=== PATIENT | male | born 1950 | race Caucasian/White ===

== ENCOUNTER 2016-04-26 09:55 | Inpatient (IN) | payer MEDICARE, OTHER ==
[~2016-04-26] VITALS: Ht 172.7 cm; Wt 87.7 kg
[2016-04-26] VITALS (7 sets, daily range): BP systolic 107–143; BP diastolic 50–77; PULSE 52–130; RESP 16–26; O2SAT 93–96
[~2016-04-26 09:55] MED LIST: ASPI-628 PO; ATOR80TA77 PO; CHLORTHALIDONE; GABA600T2 PO; HYDR-4003 PO; LISI-567 PO; OMEP-113 PO; PREG150C PO; SILD100T PO; ZLP10T PO
[2016-04-26] MEDS ORDERED: 0.9% Sodium Chloride 1,000 ML IV ONE ×2 (10:08→11:25)
--- NOTE | 2016-04-26 10:08 | ED.REPORT ---
HPI-General Illness Date of Service Apr 26, 2016 ED Provider: Jose Guadalupe Crandall MD Pt is a 66 y/o male w/ a hx of CAD s/p stenting, HTN, presenting to the ED via EMS from Urgent Care due to generalized weakness onset 3 days ago. Pt c/o myalgias, shaking chills, fever (103 F at UC), mild dry cough, nasal congestion. Pt denies nausea, vomiting, diarrhea, dysuria, CP, SOB, abdominal pain. Rapid influenza screen was negative. Code status: FULL CODE - discussed with patient and Nursing Notes Stated Complaint: ALT LOC Chief Complaint: General Complaint Nursing Notes Reviewed: Yes Allergies: Coded Allergies: No Known Allergies (Verified , 09/19/15) Scheduled Alfuzosin ER (Alfuzosin ER) 10 Mg Tab.er.24h 10 MG PO DAILY Aspirin (Aspirin) 81 Mg Tablet 81 MG PO DAILY Atorvastatin Calcium (Atorvastatin Calcium) 80 Mg Tablet 80 MG PO DAILY Chlorthalidone (Chlorthalidone) 25 Mg Tablet 1.5 MG PO DAILY Cholecalciferol (Vitamin D3) (Vitamin D3) 2,000 Unit Capsule 2,000 UNIT PO DAILY Finasteride (Finasteride) 5 Mg Tablet 5 MG PO DAILY Lisinopril (Lisinopril) 20 Mg Tablet 20 MG PO BID Multivitamin (Once Daily) 1 Each Tablet 1 EACH PO DAILY [place]-3/Dha/Epa/Fish Oil (Fish Oil 1,000 mg Softgel) 1 Each Capsule 1 EACH PO DAILY Pregabalin (Lyrica) 150 Mg Capsule 150 MG PO BID Ranitidine (Ranitidine) 150 Mg Capsule 150 MG PO BID Vitamin B Complex & Vit C No.4 (Super B Complex) 150 Mg Tablet 150 MG PO DAILY Scheduled PRN Hydrocodone-Acetaminophen 5-325 mg (Hydrocodone-Acetaminophen 5-325 mg) 1 Each Tablet 1 EACH PO Q4 PRN PRN For Pain Sildenafil Citrate (Viagra) 100 Mg Tablet 100 MG PO UD PRN PRN sex Zolpidem (Ambien) 10 Mg Tab 5 MG PO HS PRN PRN For Insomnia General Time Seen by MD: 10:06 Chief Complaint Not feeling well Hx Obtained From: Patient, EMS Arrived By: Ambulance Sudden in Onset?: No Onset Occurred: 3 days ago Symptom Duration: Since onset Severity: Current: No pain currently Severity: Maximum: No pain Similar Sx Previous: No Past Medical History Past Medical History Hypertension Arthritis CAD s/p stenting Enlarged prostate Diverticulosis Denies MS Past Surgical History Cardiac stents Bilat trigger finger repair Left TKA Family History Colon cancer - negative colonoscopy Smoking History Never Smoker Ambulatory Status Independent Review of Systems Full Review of Systems Constitutional: Reports: Chills, Fever, Weakness - generalized Ears / Nose / Throat: Reports: Nasal congestion Respiratory: Reports: Non-productive cough, Denies: Shortness of breath Cardiovascular: Denies: Chest pain GI: Denies: Abdominal pain, Diarrhea, Nausea, Vomiting Male: Denies Dysuria Musculoskeletal: Reports: Myalgia Complete sys rev & neg: except as marked. Physical Exam Vital Signs Vital Signs Date Time Temp Pulse Resp B/P Pulse Ox O2 Delivery O2 Flow Rate FiO2 04/26/16 11:57 62 20 107/50 93 Nasal Cannula 3 04/26/16 10:01 39.5 100 16 123/56 94 Room Air Initial VS: Reviewed, Vital signs abnormal Head / Eyes: Atraumatic, Normocephalic, PERRL ENT: Mucous membranes moist, Conjunctiva normal, No scleral icterus Neck: Supple, Full range of motion Respiratory: Breath sounds normal, Clear to auscultation, No respiratory distress Cardiovascular: Regular rate & rhythm, Heart sounds normal, Intact distal pulses Extremities: Vascular intact, Neuro intact, No swelling, No tenderness Skin: Warm, Dry, No cyanosis Neurologic: Alert, Oriented, Nonfocal Psychiatric: Mood/affect normal, Behavior normal, Normal thought content General/Constitutional: Awake, Alert, No acute distress, Cooperative, Not toxic appearing Abdomen: Atraumatic, Soft, No guarding, No rebound, No distention, No palpable mass Tenderness/Guarding/Rebound: Positive: Tender RUQ... (Mild) Interpretation & Diagnostics Lab Results Interpretation Result Diagram: 04/26/16 1008 04/26/16 1008 Test 04/26/16 10:08 White Blood Count 5.6th/mm3 (3.8-10.1) Red Blood Count 4.60mil/mm3 (4.40-5.80) Hemoglobin 13.4g/dL (13.8-17.2) Hematocrit 39.6% (41.0-50.0) Mean Corpuscular Volume 86.1fL (81-100) Mean Corpuscular Hemoglobin 29.1pg (27.0-35.0) Mean Corpuscular Hemoglobin Concent 33.8% (32.0-37.0) Red Cell Distribution Width 14.4% (12.3-15.4) Platelet Count 62bil/L (150-400) Neutrophils (%) (Auto) 81.3% (40-74) Lymphocytes (%) (Auto) 4.3% (14-46) Monocytes (%) (Auto) 13.6% (4-12) Eosinophils (%) (Auto) 0% (0-5) Basophils (%) (Auto) 0.4% (0-3) Urine Color Straw (YELLOW) Urine Appearance Hazy (CLEAR,HAZY) Urine pH 5.5 (5.0-8.0) Urine Specific [place] 1.025 (1.003-1.035) Urine Protein 30mg/dL (NEG,TRACE) Urine Glucose (UA) Negativemg/dL (NEGATIVE) Urine Ketones Negativemg/dL (NEGATIVE) Urine Occult Blood Moderate (NEGATIVE) Urine Nitrite Negative (NEGATIVE) Urine Bilirubin Negative (NEGATIVE) Urine Urobilinogen Normalmg/dL (NORMAL) Urine Leukocyte Esterase Negative (NEGATIVE) Urine RBC 0-2/hpf (0-2) Urine WBC 0-5/hpf (0-5) Urine Epithelial Cells Occasional/hpf (NONE-MOD) Urine Crystals None seen (NONE SEEN) Urine Bacteria Moderate/hpf (NONE-FEW) Urine Hyaline Casts None/lpf (NONE) Urine Granular Casts Occasional (NONE SEEN) Urine Waxy Casts None seen (NONE SEEN) Urine Red Blood Cell Casts None seen (NONE SEEN) Urine White Blood Cell Casts None seen (NONE SEEN) Urine Mucus Present (None Seen) Urine Trichomonas None seen (NONE SEEN) Urine Yeast None (NONE SEEN) Urinalysis Comment None Urine Culture Reflexed Indicated Hold Urine Received (Received) Sodium Level 135mEq/L (134-144) Potassium Level 3.1mEq/L (3.5-5.2) Chloride Level 94mEq/L (97-108) Carbon Dioxide Level 27mmol/L (18-29) Blood Urea Nitrogen 19mg/dL (8-27) Creatinine 1.01mg/dL (0.76-1.27) Estimat Glomerular Filtration Rate 79mL/min (>59) Glucose Level 217mg/dL (60-99) Lactic Acid Level 3.2mmol/L (0.4-2.0) Calcium Level 8.7mg/dL (8.5-10.1) Magnesium Level 1.8mg/dL (1.6-2.6) Total Bilirubin 1.5mg/dL (0.0-1.2) Aspartate Amino Transf (AST/SGOT) 32U/L (0-50) Alanine Aminotransferase (ALT/SGPT) 26U/L (0-44) Alkaline Phosphatase 56U/L (25-160) Total Protein 7.1g/dL (6.4-8.4) Albumin 4.0g/dL (3.4-5.0) Lipase 22U/L (13-60) ECG Interpretation ECG Interpretation: Sinus rhythm rate 82 PVC LAD Prolonged QT interval, QTc 593 Time: 10:28 Interpreted by: ED physician Normal ECG Interpretation: No acute ischemic changes X-Ray Chest Interpretation Chest Xray Interpretation: IMPRESSION: Patchy bibasilar opacities as above suggestive of infection or inflammation such as developing pneumonia. Dictated by: Crista He M.D. on 04/26/2016 at 10:53 Approved by: Crista He M.D. on 04/26/2016 at 10:53 View: Portable, 1 view Interpretation / Wet Read by: Interpret - Radiologist Re-Eval/Medical Decision Med Decision/Clinical Course 66-year-old male history of CAD status post stent, hypertension presenting with cough and fevers times several days. Temperature 103. Vital signs otherwise stable. Lactate is three. Chest x-ray concerning for pneumonia. Patient requiring 3 L normal saline. Patient will be admitted for pneumonia. Given Rocephin and doxycycline. Avoided azithromycin due to prolonged QTC. Given potassium. Sent viral PCR. Source of Hx: Old records Time of Eval: 11:25 Re-Evaluation/Progress Note: Pt rechecked. Informed pt of need for admission due to bilateral pneumonia with hypoxia. Pt understands and agrees with plan for admission. All questions addressed. Consultation : Referral / Consult Name: Americo Jimenes MD Consulted With: Hospitalist Call Returned at: 12:48 Damascener: Will see patient, Agrees with eval, Agrees with plan, Accepts admit Counseled Regarding: Diagnosis, Lab results, Need for admission Discharge & Departure Primary Impression: Sepsis Sepsis type: sepsis due to unspecified organism Qualified Code: A41.9 - Sepsis, unspecified organism Additional Impression: Bilateral pneumonia Pneumonia type: due to unspecified organism Lung location: lower lobe of lung Qualified Code: J18.9 - Pneumonia, unspecified organism Disposition: ADMITTED TO HOSPITAL Discharge Condition All VS Reviewed: Yes Condition: Stable Referrals: Phillip Marquis MD (PCP) Andreas Attestation Portions of this note were transcribed by Carlos Ascencio. I, Dr. Crandall personally performed the history, physical exam and medical decision-making; I reviewed and confirmed the accuracy of the information in the transcribed note. Signed by Andreas Garzon, 04/26/16 - [id number] copies to: Phillip Marquis MD, Ben M MD Apr 26, 2016 10:08 CARLOS ASCENCIO Apr 26, 2016 10:17
[2016-04-26] MEDS ORDERED: Ondansetron 2 mg/mL 2 mL Inj IVPUSH PRN ×2 (10:10→12:50)
[2016-04-26 10:23] LABS: EOSINOPHILS % (AUTO) 0 % (0-5)
[2016-04-26 10:31] LABS: Magnesium 1.8 mg/dL (1.6-2.6)
[2016-04-26 10:46] LABS: BASOPHILS % (AUTO) 0.4 % (0-3); MONOCYTES % (AUTO) 13.6 % (4-12); Mean Corpuscular Hemoglobin 29.1 pg (27.0-35.0); Mean Corpuscular Volume 86.1 fL (81-100); NEUTROPHILS % (AUTO) 81.3 % (40-74); Platelet Count 62 bil/L (150-400)
--- NOTE | 2016-04-26 10:55 | DRSVH ---
PROCEDURE: X-RAY CHEST ONE VIEW, PORTABLE ([id number]) INDICATIONS: fever TECHNIQUE: One view of the chest was acquired. COMPARISON: [facility], CR, XR CHEST 2VW, 02/08/2015, 12:56. FINDINGS: Surgical changes and devices: None. Lungs and pleura: Patchy bibasilar opacities, left greater than right are present. Mediastinum: Mediastinal contours appear normal. Heart size is normal. Bones and chest wall: No suspicious bony lesions. Overlying soft tissues appear unremarkable. IMPRESSION: Patchy bibasilar opacities as above suggestive of infection or inflammation such as devel oping pneumonia. Dictated by: Crista He M.D. on 04/26/2016 at 10:53 Approved by: Crista He M.D. on 04/26/2016 at 10:53
[2016-04-26 10:59] LABS: APPEARANCE,URINE HAZY (CLEAR,HAZY); COLOR,URINE STRAW (YELLOW); PH,URINE 5.5 (5.0-8.0)
[2016-04-26 11:00] LABS: OCCULT BLOOD,URINE MODERATE (NEGATIVE)
[2016-04-26 11:01] LABS: UROBILINOGEN,URINE NORMAL (NORMAL)
[2016-04-26] MEDS ORDERED: cefTRIAXone Inj 2,000 MG in Dextrose 5% Minibag Plus 50 ML IV ONE (11:10)
[2016-04-26] MEDS ORDERED: KCl 40 mEq/D5W 500 mL 40 MEQ in IV Premix 1 EACH IV ONE (12:50)
[2016-04-26] MEDS ORDERED: Doxycycline Inj 100 MG in Dextrose 5% Minibag Plus 100 ML IV SCH (12:50)
[2016-04-26] MEDS ORDERED: Polyethylene Glycol (PEG) 17 Gm Powder PO PRN (12:50)
[2016-04-26] MEDS ORDERED: Alum-Mag Hydrox-Simeth 30 mL Suspension PO PRN ×2 (12:50)
[2016-04-26] MEDS ORDERED: ALFU10TA11 PO (13:23)
[2016-04-26] MEDS ORDERED: FINA5TAB9 PO (13:23)
[2016-04-26] MEDS ORDERED: HYG25 PO (13:23)
[2016-04-26] MEDS ORDERED: MULT-666 PO (13:26)
[2016-04-26] MEDS ORDERED: OMEG-38 PO (13:26)
[2016-04-26] MEDS ORDERED: VITA150T PO (13:26)
[2016-04-26] MEDS ORDERED: CHOL200047 PO (13:26)
[2016-04-26] MEDS ORDERED: RANI150C4 PO (13:26)
[2016-04-26] MEDS ORDERED: ASPI-973 PO (13:27)
--- NOTE | 2016-04-26 13:28 | NUR ---
POTASSIUM RATE CHANGE POTASSIUM INFUSION CAUSES ARM DISCOMFORT SO RATE IS CHANGED TO 100 CC/HR THEN 80CC/HR.
[2016-04-26] MEDS ORDERED: ACET-171 PO (13:31)
--- NOTE | 2016-04-26 13:48 | NUR ---
Admit nurse note Partial admission assessment completed in the ER with 's assistance. Pt. denies complaints at present except R arm pain associated with potassium infusion. After potassium rate change did not improved pt. pain, NS was started concurrently infusing with potassium. PT. reports improvement of pain. Pt. and report several day hx shakiness and weakness to the point that had to dress him this am. Pt. is normally independent and steady on his feet. Pt. verified NKA. Med rec completed per med bottles and pt./ recall. Med bottles to be sent home with daughter. Pt. declines advance directives information. Report called to Bryan Franks.
--- NOTE | 2016-04-26 13:54 | DRSVH ---
PROCEDURE: US ABDOMEN, LIMITED ([id number]) INDICATIONS: RUQ TECHNIQUE: Real-time focused scanning was performed of the abdomen, with image documentation. COMPARISON: None. FINDINGS: Gallbladder size is prominent otherwise normal appearance. No stones or wall thickening. No pericholecystic fluid. Liver is diffusely increased in echogenicity. No focal hepatic abnormalities identified. Normal hep atic size. IMPRESSION: Mild hydropic appearance of the gallbladder which otherwise is normal. Dictated by: Eric GARCIA Interpreted: Crista He MD on 04/26/2016 at 13:53 Transcribed by: FRANCISCO on 04/26/2016 at 13:54 Approved by: Crista He M.D. on 04/26/2016 at 17:09
--- NOTE | 2016-04-26 16:01 | NUR ---
admit pt arrived on unit and was able to ambulate from bed to bed. Pt is a&ox4, denied pain and SOB, on 3L NC with Sp02 of 96%. Pt received abx X2 in ER and 2L of fluid. Pt is running a K+ and NS concurrently. Med rec completed by med rec nurse in ER. VS: BP 116/71, P 54 (baseline is vernon), RR 20, Sp02 96%, T 36.9, BG 169. pt is resting in bed and waiting to order dinner.
[2016-04-26] MEDS: Sodium Chloride LOK Flush 10 mL Syringe IVFLUSH SCH ×2 (16:30→22:55)
[2016-04-26] MEDS: Heparin 5,000 Unit/mL Inj SUBQ SCH (16:30)
[2016-04-26] MEDS: 0.9% Sodium Chloride 1,000 ML IV SCH ×2 (16:58→22:55)
--- NOTE | 2016-04-26 17:15 | PCM.HPMED ---
Subjective Date of Service Apr 26, 2016 Primary Provider: Admitting Physician: Americo Jimenes MD Primary Care Physician: Phillip Marquis MD Attending Physician: Americo Jimenes MD Admit Status: From the Emergency Department, Full Admit Chief Complaint: Generalized weakness. . History of Present Illness: Maico Yoon II is a 66-year-old male with a past medical history significant for coronary artery disease status post stenting, hypertension, and hyperlipidemia who presented to [facility] Emergency Department via EMS from the urgent care due to generalized weakness and flulike symptoms. He reports that his symptoms began 3 days ago and included fever (103F), chills, rigors, myalgias, severe headache, mild lightheadedness, and nonproductive dry cough. He also has developed sore throat and mild deep substernal chest pain. He describes the chest pain as sharp in quality and similar to the chest pain he had when he had coronary stenting but not as severe. EKG does not show any abnormalities other than severely prolonged QTc interval. The chest pain is only present with the rigors and while coughing. There is no pleuritic component.The chest pain does not radiate. He denies sick contacts at home. Vital signs in the ER: Temperature 39.5. Pulse 100. Respiratory rate 16. Blood pressure 123/56. Pulse ox 94% on room air. He was given 2 L of NS, acetaminophen 975 mg 1, morphine sulfate 4 mg IV 1, ondansetron 4 mg IV 1, ceftriaxone 2 g IV 1, doxycycline 100 mg 1, and KCl 40 mEq IV 1. PCP is Dr. Phillip Marquis. . Review of Systems: A comprehensive review of systems was conducted with the patient and found to be negative except as above in the History of Present Illness. . Allergies Coded Allergies: No Known Allergies (Verified , 09/19/15) Home Medications Acetaminophen 500 mg every 6 hours as needed for pain. Alfuzosin ER 10 mg daily. Aspirin 81 mg daily. Atorvastatin 80 mg daily. Chlorthalidone 1.5 mg daily. Vitamin D3 2000 units daily. Finasteride 5 mg daily. Hydrocodone/acetaminophen 5-325 mg every 4 hours as needed for pain. Lisinopril 20 mg twice a day. Multivitamin daily. [place]-3 1000 mg daily. Lyrica 150 mg twice a day. Ranitidine 150 mg twice a day. Viagra 100 mg as needed. B complex daily. Zolpidem 5 mg daily at bedtime as needed for insomnia. . PMH 1. Hypertension. 2. CAD s/p stenting. 3. Hyperlipidemia. 4. BPH. 5. Osteoarthritis of hands and knees. 6. Diverticulosis. 7. GERD. 8. Erectile dysfunction disorder. 9. Insomnia. . Surgical History 1. Cardiac stent. 2. Bilateral trigger finger repair. 3. Left TKA. 4. Right knee arthroscopy. 5. Colon polyps. 6. Bilateral inguinal hernia repair. . Family History A mother who had unknown type of end-stage renal disease who later had a CVA and from complications secondary to stroke. A father who from pneumonia. 2 brothers and 3 sisters who are all healthy. . Social History Hx Alcohol Use: No Hx Substance Use: No Hx Tobacco Use: No Smoking Status: Never Smoker Additional Information The patient has been for 42 years and has 1 son and 1 daughter who are both healthy. 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 He was born in [place] and now lives in [place] with his . He is independent at baseline. . Exam Vital Signs Vital Sign - Last Date Time Temp Pulse Resp B/P Pulse Ox O2 Delivery O2 Flow Rate FiO2 04/26/16 14:45 Supplement Oxygen 04/26/16 14:15 36.9 54 18 116/71 96 3.00 Exam General: Older gentleman lying in bed and in no acute distress, well-developed, well-nourished, appropriately interactive. HEENT: Normocephalic, atraumatic. External ears without defect. Pupils equal, round, and reactive to light. Anicteric sclerae, moist conjunctivae, and slight ptosis on the left. Oropharynx mild erythema without exudates. Neck: Supple with full range of motion. No jugular venous distension. No bruits. No lymphadenopathy or thyromegaly. Cardiovascular: Regular rate and rhythm with no murmurs, rubs, or gallops appreciated Pulmonary: Fine crackles at bilateral bases with diminished breath sounds on the right. No rhonchi or wheezes. Normal respiratory effort with no use of accessory muscles. Abdomen: Soft, nontender, nondistended, bowel sounds present. No hepatosplenomegaly or masses appreciated. Extremities: No clubbing, cyanosis, or edema. Developed rigors during interview. Skin: Normal temperature, turgor, and texture; no rash, ulcers, or subcutaneous nodules appreciated. Neurological: Cranial nerves grossly intact. Normal muscle strength, tone, and bulk. Reflexes, coordination, and sensory function within normal limits. No known gait impairment. Psychiatric: Normal mood and affect. Alert and oriented to person, place, and time. . Lab and Diagnostics Labs Item Value Date Time Lactic Acid Level 3.2 mmol/L H 04/26/16 1008 Calcium Level 8.7 mg/dL 04/26/16 1008 Magnesium Level 1.8 mg/dL 04/26/16 1008 Total Bilirubin 1.5 mg/dL H 04/26/16 1008 Aspartate Amino Transf (AST/SGOT) 32 U/L 04/26/16 1008 Alanine Aminotransferase (ALT/SGPT) 26 U/L 04/26/16 1008 Alkaline Phosphatase 56 U/L 04/26/16 1008 C-Reactive Protein 12.3 mg/dL H 04/26/16 1008 Total Protein 7.1 g/dL 04/26/16 1008 Albumin 4.0 g/dL 04/26/16 1008 Lipase 22 U/L 04/26/16 1008 Procalcitonin 1.83 ng/mL H 04/26/16 1008 Result Diagram: 04/26/16 1008 04/26/16 1008 Microbiology Urine culture pending. Blood culture 2 pending. Respiratory viral PCR pending. . X-Rays, CTs and MRIs X-RAY CHEST ONE VIEW, PORTABLE IMPRESSION: Patchy bibasilar opacities as above suggestive of infection or inflammation such as developing pneumonia. Dictated by: Crista He M.D. on 04/26/2016 at 10:53 Approved by: Crista He M.D. on 04/26/2016 at 10:53 . 12-lead ECG EKG: Sinus rhythm, heart rate 82, borderline normal axis, prolonged QTC of 593 ms, otherwise normal intervals, normal R-wave progression, PVC, no pathological Q waves or acute ischemic changes such as ST elevation or depression. . Assessment & Plan Maico Yoon II is a 66-year-old male with a past medical history significant for coronary artery disease status post stenting, hypertension, and hyperlipidemia who presented to [facility] Emergency Department via EMS from the urgent care due to generalized weakness and flulike symptoms. 1. Acute severe sepsis, present on admission. Active. - SIRS criteria met includes: Febrile (39.5C) and tachycardic (heart rate 100) with source pulmonary. - Early goal-directed therapy met including: IV fluid resuscitation and broad- spectrum antibiotics. 2. Acute community-acquired pneumonia, present on admission. Active. - Patient presented with generalized weakness and URI symptoms including fever, chills, rigors, myalgias, severe headache, mild lightheadedness, and nonproductive dry cough, sore throat. - Chest x-ray revealed patchy bibasilar opacities suggestive of infection or inflammation such as developing pneumonia, as above. - Ordered viral respiratory PCR, pending. Droplet precautions in place. - Ordered sputum culture but unlikely to obtain as cough is non-productive. - Ordered strep pneumoniae and legionella urine antigens, pending. - Ordered MRSA screen, pending. - Ordered blood cultures 2, pending. - Lactic acid elevated at 3.2. Trend every 2 hours until under 2.0. - Procalcitonin elevated at 1.83 and will trend daily. - Continued IV fluid hydration with NS at 125 mL/hr. - Ordered Tylenol as needed for fevers and rigors. - Received ceftriaxone and doxycycline in the ED. Continued ceftriaxone 2 g IV every 24 hours and doxycycline 100 mg IV every 24 hours. - Ordered an infectious disease consult. We appreciate Dr. Cruz's time and care of the patient. 3. Severely prolonged QTc, present on admission. Active. - Likely secondary to Alfuzosin which has been discontinued. Flomax does not have QTC prolonging effects reported, however, will avoid at this time as it is in the same medication class. Also discussed Lyrica with the drawing supervisor which does not have QTc prolonging properties. - QTc interval prolonged at 593 ms and patient is at risk of [place] and sudden . - Avoid any QTC prolonging medications including azithromycin, antiemetics such as Zofran, and atypical antipsychotics. - Ordered magnesium level, pending. Will replete if needed. - Plan to repeat EKG in several days after stopping Alfuzosin. 4. Thrombopenia, unclear etiology, present on admission. Active. - May be secondary to DIC from sepsis and infection versus other etiologies such as liver disease (unlikely), medications, immune mediated, malignancy, etc. - Ordered hemolysis workup including: Haptoglobin, fibrinogen, reticulocyte count, PT/INR. - Continue to monitor platelet count closely. 5. Acute normocytic anemia, unclear etiology, present on admission. Active. - Patient has borderline anemia possibly secondary to DIC from sepsis and infection versus dilution versus other causes such as vitamin deficiencies, blood loss, under production, etc. - The patient does take a vitamin B complex at home, therefore, may be secondary to vitamin B12 deficiency with active replacement. - Continue to monitor hemoglobin and hematocrit daily. 6. Acute hypokalemia, present on admission. Active. - Received KCl 40 mEq IV 1 in the ED. - Will replete as needed. - Continue to monitor potassium daily. Chronic problems: 7. Hypertension, chronic. Stable. - Continue lisinopril 20 mg twice a day and chlorthalidone 37.5 mg daily. 8. Hyperlipidemia, chronic. Stable. - Continue atorvastatin 80 mg daily at bedtime. 9. CAD s/p stenting. - Continue aspirin 81 mg daily and atorvastatin 80 mg daily at bedtime. 10. BPH, chronic. Stable. - Continue alfuzosin ER 10 mg and finasteride 5 mg daily. 11. Osteoarthritis, chronic. Stable. - Continue acetaminophen and [place] 5-325 mg 1 tab every 4 hours as needed for pain. 12. GERD, chronic. Stable. - Continue famotidine 20 mg twice a day. 13. Insomnia, chronic. Stable. - Continue zolpidem 5 mg as needed for insomnia. 14. Peripheral neuropathy, chronic. Stable. - Continue Lyrica 150 mg twice a day. PRN antiemetics: Maalox. PRN bowel regimen: Senna and MiraLAX. PRN analgesics: Tylenol. Patient is admitted under inpatient status with expected length of stay greater than 2 midnights due to severity of presenting symptoms, risk of adverse event, and complexity of treatment plan. . VTE Mechanical Devices: Intermittant Pneumatic CD Resuscitation Status: CPR: Attempt Resuscitation Attending Statement The patient was seen and examined together with Dr. Faye on 04/26/2016 and I agree with the history, exam and plan as outlined in the note above. Rhina Faye DO Apr 26, 2016 15:43 Americo Jimenes MD Apr 27, 2016 10:37
[2016-04-26 17:56] LABS: INR 1.15 ratio
[2016-04-26] MEDS: HYDROcodone-APAP 5-325 mg Tablet PO PRN (17:58)
[2016-04-26] MEDS ORDERED: Acetaminophen IV 1,000 MG in IV Premix 1 EACH IV ONE (20:10)
--- NOTE | 2016-04-26 23:26 | CONS ---
[address] [address] CONSULTATION REPORT PATIENT: VEDA DONAHUE : 1950 MR#: [id number] ADMIT: 04/26/2016 JOB ID: [id number] DATE OF SERVICE: 04/26/[address] Faye for this timely consult. REASON FOR CONSULTATION: Pneumonia with sepsis. HISTORY OF PRESENT ILLNESS: The patient is a 66-year-old gentleman with underlying cardiac disease but who was in his usual state of reasonably good health until about April 23 when he started to develop high fevers, chills, sweats, actual rigors with violent shaking chills, myalgias, arthralgias, headache, lightheadedness and the beginning of a dry cough. He also noticed that he had a bit of sore throat in association with these symptoms. He was evaluated and initially felt to have a viral infection but subsequently when he worsened sent from urgent care to the emergency department where he was evaluated and admitted earlier this morning. When admitted, he had an impressive fever of almost 40 degrees, though he was normotensive. He was given hydration and started on ceftriaxone and doxy. Doxy was chosen over Azithromycin because he had a very impressively long QT interval. Since admission, the patient reports that he has continued to feel pretty nadia in terms of ongoing fever and chills, though none were as bad as the initial teeth chattering he had when this illness started. His mentation is clear now, but his tells us that he was briefly confused. He still has the significant headache, mild sore throat and a dry but persistent cough. PAST MEDICAL HISTORY: 1. 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 2. Hypertension. 3. Hyperlipidemia. 4. GERD. 5. Status post left total knee. SOCIAL HISTORY: The patient is a nondrinker and nonsmoker. FAMILY HISTORY: Negative for tuberculosis in all first-degree relatives. His father from pneumonia. His siblings are healthy. REVIEW OF SYSTEMS: Was done. The patient has considerable headache right now. He is not confused. He does note he has a sore throat which has been present since the onset of this illness. He has a dry cough and is mildly short of breath. No nausea, vomiting, diarrhea. He has chronic dysuria. He notes he has myalgias and arthralgias but no swelling of any joints. He has no focal neurologic complaint. Remainder of the review of systems negative. PHYSICAL EXAMINATION: Reveals an afebrile gentleman. Right now he is 37.7, he was 39.5 just a few hours ago in the ED, pulse is in the 50s, respiratory rate 18, blood pressure 116/71, he is saturating well on 3 L supplemental oxygen. He is shaking even as I examine him with ongoing rigors. He is awake and alert. His neck is supple. Eyes without conjunctivitis. Nose normal. Oral cavity with mild pharyngitis. No exudate is seen. No cervical adenopathy. His lungs are notable for rales at both bases, perhaps more on the right. Cardiac tones: Regular rate and rhythm without notable murmur. The abdomen is soft and essentially nontender. No [place] catheter is present. The extremities are well perfused and without evidence of synovitis or cellulitis. Neurologically, the patient is completely intact. LABORATORIES: Include white count of 5600, platelets 62,000 and he has no history of thrombocytopenia. His lactic acid is 2.1. Creatinine 1.01. LFTs are normal. CRP 12.3. Procalcitonin 1.83. Urinalysis without white cells. Urine Legionella antigen is negative. Blood cultures are negative, but they are only a few hours old. A respiratory viral PCR panel negative. Urine pneumococcal antigen is still not done, and I called the lab to see if this could be expedited. IMAGING: Includes a chest x-ray that shows patchy bibasilar infiltrates, left greater than right. An abdominal ultrasound was done and shows a hydropic appearance of the gallbladder, otherwise normal. IMPRESSION: This patient's history is entirely consistent with a pneumococcal pneumonia. Pneumococcal pneumonia often starts with a violent shaking chill and proceeds from there and that is what this patient describes. In addition, he has new-onset cough, some substernal chest pain and a chest x-ray which I reviewed and which shows bilateral infiltrates. There might be other possibilities here, but I see no evidence for meningitis, urinary tract infection or intra-abdominal process and certainly pneumococcal or other streptococcal pneumonia would make the most sense. One issue is pharyngitis which would be atypical with pneumococcal disease and could raise the possibility of group A or other beta hemolytic strep pneumonia which would be treated essentially the same way. It is also worth noting he has an extraordinarily prolonged QTc and we should be very careful to avoid any drugs that would make this worse. RECOMMENDATIONS: 1. I examined the patient with Dr. Faye at the bedside. 2. I agree with the antibiotics which currently include doxycycline and ceftriaxone. 3. As mentioned, I called the lab to try and expedite the urine pneumococcal antigen. If positive, this would confirm our diagnosis. 4. Because of his low platelets, I think some evaluation for DIC is warranted. 5. The patient is quite toxic and very close followup is warranted. 6. I will be leaving the country starting tomorrow morning for 10 days. I can be reached by e-mail but not by telephone during that time. Please do not hesitate to contact me by e-mail but recognizing the response will not be in real time. At 0345 reviewed labs-has neg pneumococcal urine antigen and positive blood cultures for Gram variable rods...changed ceftr to meropenem. Will followup by phone later today GAYLA
[2016-04-27] VITALS (10 sets, daily range): BP systolic 90–138; BP diastolic 62–83; PULSE 42–61; RESP 18–20; O2SAT 93–96
[2016-04-27] MEDS: Heparin 5,000 Unit/mL Inj SUBQ SCH ×3 (00:36→17:05)
[2016-04-27] MEDS: Meropenem Inj 2,000 MG in 0.9% Sodium Chloride 100 ML IV SCH ×3 (04:29→20:35)
[2016-04-27] MEDS: 0.9% Sodium Chloride 1,000 ML IV SCH ×2 (04:50→08:04)
[2016-04-27 06:08] LABS: BASOPHILS % (AUTO) 0.4 % (0-3); EOSINOPHILS % (AUTO) 0.2 % (0-5); MONOCYTES % (AUTO) 19.5 % (4-12); Mean Corpuscular Hemoglobin 28.7 pg (27.0-35.0); Mean Corpuscular Volume 88.2 fL (81-100); NEUTROPHILS % (AUTO) 63.3 % (40-74); Platelet Count 65 bil/L (150-400)
[2016-04-27 06:46] LABS: Magnesium 1.8 mg/dL (1.6-2.6)
--- NOTE | 2016-04-27 07:24 | NUR ---
Hemodynamics Pt was febrile early this shift. He C/O chills and was a bit confused and hypoactive. T-max 39.5. Chill NS + APAP IV given per Dr. Ivan orders. Pt improved. Temp normalized. Lactic acid WNL. BCs positive. Dr. Ivan notified. New Abx added to regimen per dr. Cruz order. Pt is A&O x4. He is in good spirits. Joking with staff and family. SPO2 mid 90s on RA. Pt stated I feel much better. VSS. No overt complication noted.
[2016-04-27] MEDS ORDERED: KCl 40 mEq/D5W 500 mL 40 MEQ in IV Premix 500 EACH IV ONE (08:20)
[2016-04-27] MEDS ORDERED: Magnesium Sulf 2 Gm/50mL Water 2 GM in IV Premix 1 EACH IV ONE (08:20)
[2016-04-27] MEDS ORDERED: cefTRIAXone Inj 2,000 MG in Dextrose 5% Minibag Plus 50 ML IV SCH (08:30)
[2016-04-27] MEDS ORDERED: Alfuzosin 10 mg ER24 Tablet PO SCH (08:30)
--- NOTE | 2016-04-27 08:41 | PCM.PNMED ---
Subjective Date of Service Apr 27, 2016 Subjective Maico Yoon II is a 66-year-old male with a past medical history significant for coronary artery disease status post stenting, hypertension, and hyperlipidemia who presented to [facility] via EMS from the urgent care due to generalized weakness and flulike symptoms. Hospital day #2. Overnight: The patient continued to be febrile and was given IV Tylenol with resolution. He also had some slight confusion and was reoriented. Telemetry overnight was sinus vernon, heart rate 40 to 50's, without ectopy. The patient is resting in bed comfortably and in no acute distress. He endorses moderate global headache. She denies ear pain, rhinitis, shortness of breath, chest pain, abdominal pain, nausea, vomiting, fever, chills, diarrhea or constipation this morning. He is voiding without difficulty. He does endorse dysuria which is chronic. He is up ambulating without assistance. Exam Vital Signs Vital Sign - Last Date Time Temp Pulse Resp B/P Pulse Ox O2 Delivery O2 Flow Rate FiO2 04/27/16 07:47 Supplement Oxygen 04/27/16 07:47 98/68 04/27/16 04:55 45 04/27/16 04:27 36.9 18 94 04/27/16 00:30 2.00 Intake and Output 04/26/16 04/26/16 04/27/16 Cumulative From/Thru 15:00 23:00 07:00 04/26/16 14:15 - 04/27/16 06:00 Intake Total 1254 ml 2529 ml 3783 ml Output Total 350 ml 350 ml Balance 904 ml 2529 ml 3433 ml Intake Oral 400 ml 400 ml IV Total 854 ml 2529 ml 3383 ml Output Urine Total 350 ml 350 ml Exam General: Older gentleman lying in bed and in no acute distress, well-developed, well-nourished, appropriately interactive. HEENT: Normocephalic, atraumatic. External ears without defect. Pupils equal, round, and reactive to light. Anicteric sclerae, moist conjunctivae, and slight ptosis on the left. Oropharynx mild erythema without exudates. Neck: Supple with full range of motion. No jugular venous distension. No bruits. No lymphadenopathy or thyromegaly. Cardiovascular: Regular rate and rhythm with no murmurs, rubs, or gallops appreciated Pulmonary: Fine crackles at bilateral bases with diminished breath sounds on the right. No rhonchi or wheezes. Normal respiratory effort with no use of accessory muscles. Abdomen: Soft, nontender, nondistended, bowel sounds present. No hepatosplenomegaly or masses appreciated. Extremities: No clubbing, cyanosis, or edema. Developed rigors during interview. Skin: Normal temperature, turgor, and texture; no rash, ulcers, or subcutaneous nodules appreciated. Neurological: Cranial nerves grossly intact. Normal muscle strength, tone, and bulk. Reflexes, coordination, and sensory function within normal limits. No known gait impairment. Psychiatric: Normal mood and affect. Alert and oriented to person, place, and time. . IVs and Medications Medications Reviewed: Medications were reviewed in detail Lab and Diagnostics Item Value Date Time Calcium Level 7.3 mg/dL L 04/27/16 0520 Magnesium Level 1.8 mg/dL 04/27/16 0520 Total Bilirubin 0.9 mg/dL 04/27/16 0520 Aspartate Amino Transf (AST/SGOT) 34 U/L 04/27/16 0520 Alanine Aminotransferase (ALT/SGPT) 25 U/L 04/27/16 0520 Alkaline Phosphatase 44 U/L 04/27/16 0520 Total Protein 5.0 g/dL L 04/27/16 0520 Albumin 3.1 g/dL L 04/27/16 0520 Procalcitonin 33.45 ng/mL H 04/27/16 0520 Result Diagram: 04/27/16 0504/27/16 0520 Microbiology Urine culture shows no growth. Blood cultures positive 2:2 for gram variable rods possibly Escherichia coli. Repeat blood cultures 2 pending. Respiratory viral PCR negative. MRSA screen pending. . X-Rays, CTs and MRIs US ABDOMEN, LIMITED IMPRESSION: Mild hydropic appearance of the gallbladder which otherwise is normal. Dictated by: Eric GARCIA Interpreted: Crista He MD on 04/26/2016 at 13: 53 Transcribed by: FRANCISCO on 04/26/2016 at 13:54 Approved by: Crista He M.D. on 04/26/2016 at 17:09 X-RAY CHEST ONE VIEW, PORTABLE IMPRESSION: Patchy bibasilar opacities as above suggestive of infection or inflammation such as developing pneumonia. Dictated by: Crista He M.D. on 04/26/2016 at 10:53 Approved by: Crista He M.D. on 04/26/2016 at 10:53 . 12-lead ECG EKG: Sinus rhythm, heart rate 82, borderline normal axis, prolonged QTC of 593 ms, otherwise normal intervals, normal R-wave progression, PVC, no pathological Q waves or acute ischemic changes such as ST elevation or depression. . Assessment & Plan Maico Yoon II is a 66-year-old male with a past medical history significant for coronary artery disease status post stenting, hypertension, and hyperlipidemia who presented to [facility] via EMS from the urgent care due to generalized weakness and flulike symptoms. Hospital day #2. 1. Acute severe sepsis, present on admission. Resolved. - SIRS criteria met includes: Febrile (39.5C) and tachycardic (heart rate 100) with source pulmonary. - Early goal-directed therapy met including: IV fluid resuscitation and broad- spectrum antibiotics. 2. Acute community-acquired pneumonia, present on admission. Active. - Patient presented with generalized weakness and URI symptoms including fever, chills, rigors, myalgias, severe headache, mild lightheadedness, and nonproductive dry cough, sore throat. - Chest x-ray revealed patchy bibasilar opacities suggestive of infection or inflammation such as developing pneumonia, as above. - Respiratory viral PCR negative, as above. - Ordered sputum culture but unlikely to obtain as cough is non-productive. - Strep pneumoniae and legionella urine antigens negative. - Ordered MRSA screen, pending. - Blood cultures positive 2:2 for gram variable rods possibly Escherichia coli, as above. - Lactic acid elevated at 3.2. Trend every 2 hours until under 2.0. - Procalcitonin elevated and trending up at 33.45, as above. Continue to trend daily. - Continue IV fluid hydration with NS at 125 mL/hr. - May give IV Tylenol as needed for fevers and rigors. - Received ceftriaxone and doxycycline in the ED. discontinued ceftriaxone 2 g IV every 24 hours. Continue doxycycline 100 mg IV every 24 hours and meropenem 2 g every 8 hours per infectious disease. - Ultrasound of abdomen showed mild hydropic appearance of the gallbladder, as above. - Ordered CT chest, abdomen, and pelvis with contrast to assess lungs and possible intra-abdominal process such as cholecystitis per recommendation of ID. - Ordered strongyloides antibody per infectious disease, pending. - Ordered an infectious disease consult. We appreciate Dr. Cruz's time and care of the patient. 3. Acute bacteremia, present on admission. Active. - Blood cultures preliminarily growing gram variable rods possibly Escherichia coli, as above. - Continue meropenem and doxycycline as above under problem #2. - Continue IV fluids with NS at 125 mL/hr. 4. Severely prolonged QTc, present on admission. Active. - Likely secondary to Alfuzosin which has been discontinued. Flomax does not have QTC prolonging effects reported, however, will avoid at this time as it is in the same medication class. Also discussed Lyrica with the paramedical aide which does not have QTc prolonging properties. - QTc interval prolonged at 593 ms and patient is at risk of [place] and sudden . - Avoid any QTC prolonging medications including azithromycin, antiemetics such as Zofran, and atypical antipsychotics. - Ordered magnesium level, pending. Will replete if needed. - Plan to repeat EKG in several days after stopping Alfuzosin. 5. Thrombopenia, unclear etiology, present on admission. Active. - Less likely secondary to DIC based on hemolysis labs, however, may be sequestration from sepsis and infection versus other etiologies such as liver disease, medications, immune mediated, malignancy, etc. - Ordered hemolysis workup including: Haptoglobin, fibrinogen, reticulocyte count, PT/INR. - Platelet count stable. Continue to monitor platelet count closely. 6. Acute normocytic anemia, unclear etiology, present on admission. Active. - Patient has borderline anemia possibly secondary to DIC from sepsis and infection versus dilution versus other causes such as vitamin deficiencies, blood loss, under production, etc. - The patient does take a vitamin B complex at home, therefore, may be secondary to vitamin B12 deficiency with active replacement. - Continue to monitor hemoglobin and hematocrit daily. 7. Acute hypokalemia, present on admission. Active. - Received KCl 40 mEq IV 1 in the ED.Ordered another KCl 40 mEq IV x 1 today. - Will replete as needed. - Continue to monitor potassium daily. Chronic problems: 7. Hypertension, chronic. Stable. - Held lisinopril 20 mg twice a day and chlorthalidone 37.5 mg daily for now as BP low normal. 8. Hyperlipidemia, chronic. Stable. - Continue atorvastatin 80 mg daily at bedtime. 9. CAD s/p stenting. - Continue aspirin 81 mg daily and atorvastatin 80 mg daily at bedtime. 10. BPH, chronic. Stable. - Continue alfuzosin ER 10 mg and finasteride 5 mg daily. 11. Osteoarthritis, chronic. Stable. - Continue acetaminophen and [place] 5-325 mg 1 tab every 4 hours as needed for pain. 12. GERD, chronic. Stable. - Continue famotidine 20 mg twice a day. 13. Insomnia, chronic. Stable. - Continue zolpidem 5 mg as needed for insomnia. 14. Peripheral neuropathy, chronic. Stable. - Continue Lyrica 150 mg twice a day. PRN antiemetics: Maalox. PRN bowel regimen: Senna and MiraLAX. PRN analgesics: Tylenol. Patient is admitted under inpatient status with expected length of stay greater than 2 midnights due to severity of presenting symptoms, risk of adverse event, and complexity of treatment plan. . VTE Mechanical Devices: Intermittant Pneumatic CD Resuscitation Status: CPR: Attempt Resuscitation Attending Statement The patient was seen and examined together with Dr. Faye on 04/27/2016 and I agree with the history, exam and plan as outlined in the note above. Rhina Faye DO Apr 27, 2016 08:18 Americo Jimenes MD Apr 28, 2016 13:11
[2016-04-27] MEDS: Sodium Chloride LOK Flush 10 mL Syringe IVFLUSH SCH ×3 (10:56→20:35)
--- NOTE | 2016-04-27 11:22 | DRSVH ---
PROCEDURE: CT CHEST, ABDOMEN AND PELVIS [facility] CONTRAST ([id number]) INDICATIONS: fevers, rigors TECHNIQUE: After the administration of oral and intravenous contrast, 5 mm thick sections acquired from the lung apices to the symphysis. 5 mm coronal and sagittal reformats were performed, with additional 7 mm c oronal MIP reformats through the lungs. For radiation dose reduction, the following was used: autom ated exposure control, adjustment of mA and/or kV according to patient size. COMPARISON: [facility], MR, MR ABD W&WO CON, 09/29/2015, 11:24. [facility], US, ABDOMEN LTD, 04/26/2016, 11:34. FINDINGS: Image quality: Excellent. CHEST: Lungs and pleura: No acute airspace opacities. There is slight posterior layering pleural effusions and no pneumothorax. Central and peripheral airways appear patent and normal in caliber. Mediastinum: Heart size is normal. No pericardial effusion. No mediastinal or hilar adenopathy by size criteria. Thoracic aorta and central pulmonary arteries are normal in size. Esophagus is michael l in caliber. No hiatal hernia. Chest wall: No axillary or supraclavicular adenopathy by size criteria. Thyroid gland appears michael l. ABDOMEN: Solid organs: Liver and spleen are abnormally enlarged in size with a craniocaudad length of the spl een up to 18.3 cm and the overall liver volume moderately enlarged. There is mildly heterogeneous he patic enhancement but the spleen enhances homogeneously. Gallbladder does not contain identifiable c alculi or emil gallbladder inflammation. Biliary system is non dilated. Pancreas enhances normally. No adrenal nodules. 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 Peritoneum and bowel: Bowel loops demonstrate normal wall thickness and caliber. No free fluid or a ir. Nodes and vessels: No retroperitoneal or mesenteric adenopathy by size criteria. Aorta and inferior vena cava are normal in size. Miscellaneous: There is a small left paramedian periumbilical ventral hernia, through body wall defec t measuring up to 2.2 cm in maximal dimension and containing omentum. PELVIS: Genitourinary: Bladder wall thickness is normal. Miscellaneous: No inguinal hernias or adenopathy. Bones: No suspicious bony lesions. No vertebral body compression fractures. IMPRESSION: No diverticulitis is found. No pneumonia identified. Slight bilateral pleural effusions incidentally noted. A definite source of reported fevers and writers is not seen. Presumed autosomal dominant hepatorenal disease, with multiple moderate and large cysts at the kidney s and a multitude of small cysts seen within the liver parenchyma which were better visualized by rec ent prior MR scanning. Hepatic and splenic enlargement, no varices or ascites is found. Depending on the clinical status followup by barium enema or colonoscopy may be warranted. Note is m gage of stool within the colon and diverticulosis along the colonic kuo but without definite acute d iverticulitis. Accurate assessment for presence or absence of colitis or underlying colonic neoplasm would be quite limited in this study. Dictated by: Rafa Ambrocio M.D. on 04/27/2016 at 11:09 Approved by: Rafa Ambrocio M.D. on 04/27/2016 at 11:21
[2016-04-27] MEDS: HYDROcodone-APAP 5-325 mg Tablet PO PRN ×3 (12:09→21:24)
[2016-04-27] MEDS: Doxycycline Inj 100 MG in Dextrose 5% Minibag Plus 100 ML IV SCH (12:30)
--- NOTE | 2016-04-27 14:48 | NUR ---
Social Work: Initial Assessment Data: Pt is a 66 y/o male admitted for pneumonia/sepsis. Pt's PCP is Dr Marquis, pt's insurance is Medicare with [employer]. EMR reviewed. Readmit score 2, low. OPERATING ROOM MANAGER met with pt and spouse at bedside, role explained. Pt states he and his live in [place] in a two story home where he uses no DME. Pt drives, has hx of HH with [facility], no hx of SNF, no LTC insurance, pt is [facility], and is not a caregiver. OPERATING ROOM MANAGER notified UR specialist that pt is [facility] connected. Pt accepted information regarding AD/DPOA, does not currently have one. No further d/c planning needs at this time. OPERATING ROOM MANAGER will continue to follow if needs arise. Assessment: Pt who is independent at baseline. Plan: Pt will d/c home via POV with spouse when medically stable. No further d/c planning needs at this time. OPERATING ROOM MANAGER will continue to follow if needs arise. YASSINE Stockton Addendum: 04/27/16 at 1452 by FESTUS LION Amended: Links added.
--- NOTE | 2016-04-27 14:51 | CONS ---
[address] [address] CONSULTATION REPORT PATIENT: VEDA DONAHUE : 1950 MR#: [id number] ADMIT: 04/26/2016 JOB ID: [id number] DATE OF SERVICE: 04/27/2016 SURGICAL CONSULTATION: REASON FOR CONSULTATION: The patient is seen in consultation at the request of Dr. Faye regarding further evaluation and management of possible cholecystitis. HISTORY OF PRESENT ILLNESS: The patient is a 66-year-old man who was admitted through the emergency department yesterday for fevers and chills of unknown etiology. The patient and his tell me that three or four days ago he began to experience fevers, shaking chills and rigors. He has had severe accompanying headaches. Eventually, it reached a point where he could take it no more. So, he was brought to the emergency department yesterday morning. There, he was found to have a normal white blood cell count of 5.6. Blood cultures were drawn which 1/2 cultures showing gram-negative rods. In trying to identify a source of his possible gram-negative bacteremia, an ultrasound of the abdomen was obtained which I personally reviewed. This showed essentially unremarkable gallbladder with no stones, normal wall thickness and no pericholecystic fluid. A CT scan of the abdomen and pelvis was obtained today which again, I personally reviewed, and it is unrevealing as to the source of his bacteremia. I am consulted regarding the possibility that his gallbladder is the source. The patient denies any history of abdominal pain. He has had no nausea or vomiting. He has had no prior history suggestive of biliary colic. He does have a history of constipation. He tells me that he is feeling much better today. PAST MEDICAL HISTORY: 1. Hypertension. 2. Idiopathic neuropathy. 3. BPH. 4. Coronary artery disease, status post a stent. PAST SURGICAL HISTORY: 1. Left knee surgery. 2. Right inguinal hernia repair. MEDICATIONS: He tells me home medications include lisinopril, hydrocodone, and medicine for his neuropathy. ALLERGIES: He has no known drug allergies. FAMILY HISTORY: Family history is significant for mother with colon cancer, cardiac disease and amyloidosis. SOCIAL HISTORY: He lives in [place]. He is retired. He does not smoke and does not drink alcohol. REVIEW OF SYSTEMS: Full review of systems is obtained and positive for headache. His other symptoms seemed to have resolve, consisted chiefly of fevers, chills and muscle pain. PHYSICAL EXAMINATION: He was febrile upon admission but has been afebrile since this morning. Today, his temperature is 36.8 degrees, heart rate 61 beats per minute, blood pressure 113/71. He is saturating 94% on room air with a respiratory rate of 18 breaths per minute. In general, he appears very comfortable, in no acute distress. Cardiovascular: He has a regular rate and rhythm with no appreciated murmurs, rubs, or gallops. Pulmonary: His lungs are clear to auscultation bilaterally. Vascular: There is no carotid bruit. Neck: He has no thyromegaly. Lymph: He has no cervical lymphadenopathy. GI: His abdomen is soft, nontender, nondistended. Extremities: Warm, without significant edema. Skin is warm without rash. Neuro is grossly intact. Psych: Pleasant and appropriate. LABORATORY DATA: His white blood cell count remains normal at 5.2 today, his hematocrit is 37.2, platelet count is 65. His procalcitonin this morning was 33.45. IMAGING: CT scan and ultrasound were both personally reviewed and as per the HPI. ASSESSMENT AND PLAN: This is a 66-year-old man admitted with gram-negative jose guadalupe bacteremia of unknown etiology. I think it highly unlikely that the patient's gallbladder is the source of his bacteremia. Both the ultrasound and CT scan suggestive of a normal gallbladder. He does not have stones. He has no history suggestive of biliary colic and currently denies any pain. Though elderly people in immediate compromise can develop cholecystitis without complaint of pain, it seems unlikely that would be the case in him. Given the radiographic and physical exam findings, as well as his history, I do not think that further investigation of the gallbladder is warranted. However, if there are further concerns, a HIDA scan could be ordered. At this point, I am going to sign off. Please feel free to contact me if there are any further questions. Incidentally, the patient does have an umbilical hernia that causes intermittent discomfort. I have instructed the patient he is welcome to follow up with me as an outpatient for evaluation and treatment of this. When he is discharged, please provide him with my clinic number.
[2016-04-27 17:34] LABS: Magnesium 2.4 mg/dL (1.6-2.6)
--- NOTE | 2016-04-27 18:34 | NUR ---
Shift notation Pt afebrile for shift. At last set of vitals temp slightly elevated to 37.4. Pt reassessed at 36.8 at 30 minutes. Pt is A&O, remains in good spirits, and continues to feel better. Pt up independently in room to BR, denies lightheadedness or dizziness. AM BP medications held for hypotension. BP remains WNL for this shift. Potassium rider ordered for low K (3.3). Pt complains of pain in arm from rider. Infusion rate decreased to 65ml/hr and diluted with NS @125. Pt was able to tolerate the rest of infusion. Pt was educated to the reason for potassium and agreed to tolerate the discomfort associated with the infusion.
[2016-04-27] MEDS ORDERED: KCl 40 mEq/D5W 500 mL 40 MEQ in IV Premix 1 EACH IV ONE (21:00)
[2016-04-27] MEDS ORDERED: 0.9% Sodium Chloride 250 ML ONE (21:13)
--- NOTE | 2016-04-27 21:30 | NUR ---
Potassium 2000 repeat K noted to be 3.2. Dr. Ivan made aware. 40 Meq K rider ordered. aware of pt intolerance to previous IV dose. IV infusing at lower rate. Pt currently tolerating at this time.
[2016-04-28] VITALS (8 sets, daily range): BP systolic 129–150; BP diastolic 69–92; PULSE 48–62; RESP 18–20; O2SAT 93–97
[2016-04-28] MEDS: Heparin 5,000 Unit/mL Inj SUBQ SCH ×3 (00:30→16:30)
[2016-04-28] MEDS: Meropenem Inj 2,000 MG in 0.9% Sodium Chloride 100 ML IV SCH ×3 (04:23→19:49)
[2016-04-28 06:35] LABS: Mean Corpuscular Hemoglobin 28.7 pg (27.0-35.0); Mean Corpuscular Volume 82.8 fL (81-100)
[2016-04-28 07:08] LABS: INR 1.01 ratio
[2016-04-28 07:20] LABS: Magnesium 2.1 mg/dL (1.6-2.6)
[2016-04-28] MEDS: HYDROcodone-APAP 5-325 mg Tablet PO PRN ×3 (08:02→19:06)
[2016-04-28] MEDS: Sodium Chloride LOK Flush 10 mL Syringe IVFLUSH SCH ×2 (08:05→17:15)
[2016-04-28] MEDS: Doxycycline Inj 100 MG in Dextrose 5% Minibag Plus 100 ML IV SCH (12:32)
--- NOTE | 2016-04-28 12:38 | PCM.PNMED ---
Subjective Date of Service Apr 28, 2016 Subjective Maico Yoon II is a 66-year-old male with a past medical history significant for coronary artery disease status post stenting, hypertension, and hyperlipidemia who presented to [facility] Emergency Department via EMS from the urgent care due to generalized weakness and flulike symptoms. Hospital day #3. No acute overnight events. Telemetry overnight was sinus rhythm, heart rate 50 to 60's, without ectopy. The patient is resting in bed comfortably and in no acute distress. Patient states he feels much better. He denies headache, shortness of breath, chest pain, abdominal pain, nausea, vomiting. He has a slight fever of 37.4 C. He is voiding without difficulty. He is up ambulating without assistance. Exam Vital Signs Vital Sign - Last Date Time Temp Pulse Resp B/P Pulse Ox O2 Delivery O2 Flow Rate FiO2 04/28/16 09:23 37.4 54 20 137/79 94 Room Air 04/27/16 00:30 2.00 Intake and Output 04/27/16 04/27/16 04/28/16 Cumulative From/Thru 15:00 23:00 07:00 04/26/16 14:15 - 04/28/16 05:56 Intake Total 800 ml 3505 ml 1436 ml 9524 ml Output Total 1050 ml 2190 ml 1975 ml 5565 ml Balance -250 ml 1315 ml -539 ml 3959 ml Intake Oral 800 ml 1419 ml 636 ml 3255 ml IV Total 2086 ml 800 ml 6269 ml Output Urine Total 1050 ml 2190 ml 1975 ml 5565 ml # Bowel Movements 0 0 Exam General: Older gentleman lying in bed and in no acute distress, well-developed, well-nourished, appropriately interactive. HEENT: Normocephalic, atraumatic. External ears without defect. Pupils equal, round, and reactive to light. Anicteric sclerae, moist conjunctivae, and slight ptosis on the left. Oropharynx mild erythema without exudates. Neck: Supple with full range of motion. No jugular venous distension. No bruits. No lymphadenopathy or thyromegaly. Cardiovascular: Regular rate and rhythm with no murmurs, rubs, or gallops appreciated Pulmonary: Fine crackles at bilateral bases with diminished breath sounds on the right. No rhonchi or wheezes. Normal respiratory effort with no use of accessory muscles. Abdomen: Soft, nontender, nondistended, bowel sounds present. No hepatosplenomegaly or masses appreciated. Extremities: No clubbing, cyanosis, or edema. Developed rigors during interview. Skin: Normal temperature, turgor, and texture; no rash, ulcers, or subcutaneous nodules appreciated. Neurological: Cranial nerves grossly intact. Normal muscle strength, tone, and bulk. Reflexes, coordination, and sensory function within normal limits. No known gait impairment. Psychiatric: Normal mood and affect. Alert and oriented to person, place, and time. . Lab and Diagnostics Result Diagram: 04/28/1662104/28/16621 Microbiology Urine culture shows no growth. Blood cultures positive 2:2 for gram variable rods possibly Escherichia coli. Repeat blood cultures 2 pending. Respiratory viral PCR negative. MRSA screen pending. . X-Rays, CTs and MRIs US ABDOMEN, LIMITED IMPRESSION: Mild hydropic appearance of the gallbladder which otherwise is normal. Dictated by: Eric Lopez RRA Interpreted: Crista He MD on 04/26/2016 at 13: 53 Transcribed by: FRANCISCO on 04/26/2016 at 13:54 Approved by: Crista He M.D. on 04/26/2016 at 17:09 X-RAY CHEST ONE VIEW, PORTABLE IMPRESSION: Patchy bibasilar opacities as above suggestive of infection or inflammation such as developing pneumonia. Dictated by: Crista He M.D. on 04/26/2016 at 10:53 Approved by: Crista He M.D. on 04/26/2016 at 10:53 . 12-lead ECG EKG: Sinus rhythm, heart rate 82, borderline normal axis, prolonged QTC of 593 ms, otherwise normal intervals, normal R-wave progression, PVC, no pathological Q waves or acute ischemic changes such as ST elevation or depression. . Assessment & Plan Maico Yoon II is a 66-year-old male with a past medical history significant for coronary artery disease status post stenting, hypertension, and hyperlipidemia who presented to [facility] Emergency Department via EMS from the urgent care due to generalized weakness and flulike symptoms. Hospital day #2. 1. Acute severe sepsis, present on admission. Resolved. - SIRS criteria met includes: Febrile (39.5C) and tachycardic (heart rate 100) with source pulmonary. - Early goal-directed therapy met including: IV fluid resuscitation and broad- spectrum antibiotics. 2. Acute community-acquired pneumonia, present on admission. Active. - Patient presented with generalized weakness and URI symptoms including fever, chills, rigors, myalgias, severe headache, mild lightheadedness, and nonproductive dry cough, sore throat. - Chest x-ray revealed patchy bibasilar opacities suggestive of infection or inflammation such as developing pneumonia, as above. - Respiratory viral PCR negative, as above. - Ordered sputum culture but unlikely to obtain as cough is non-productive. - Strep pneumoniae and legionella urine antigens negative. - MRSA screen came back negative. - Blood cultures positive 2:2 for gram variable rods possibly Escherichia coli, as above. - Lactic acid dropped back to normal, 1.3 (3.2). - Procalcitonin trending down, 28.03 (33.45) Continue to trend daily. - Continue IV fluid hydration with NS at 125 mL/hr. - May give IV Tylenol as needed for fevers and rigors. - Received ceftriaxone and doxycycline in the ED. discontinued ceftriaxone 2 g IV every 24 hours. Continue doxycycline 100 mg IV every 24 hours and meropenem 2 g every 8 hours per infectious disease. - Ultrasound of abdomen showed mild hydropic appearance of the gallbladder, as above. Per Dr. Andrade, no further investigation of gallbladder is necessary, but HIDA scan could be ordered if further concerns persist. - Ordered CT chest, abdomen, and pelvis with contrast to assess lungs and possible intra-abdominal process such as cholecystitis per recommendation of ID. - Ordered strongyloides antibody per infectious disease, pending. - Ordered an infectious disease consult. We appreciate Dr. Cruz's time and care of the patient. 3. Acute bacteremia, present on admission. Active. - Blood cultures preliminarily growing gram variable rods possibly Escherichia coli, as above. - Continue meropenem and doxycycline as above under problem #2. - Continue IV fluids with NS at 125 mL/hr. 4. Severely prolonged QTc, present on admission. Active. - Likely secondary to Alfuzosin which has been discontinued. Flomax does not have QTC prolonging effects reported, however, will avoid at this time as it is in the same medication class. Also discussed Lyrica with the volcanology professor which does not have QTc prolonging properties. - QTc interval prolonged at 593 ms and patient is at risk of [place] Point[place] and sudden . - Avoid any QTC prolonging medications including azithromycin, antiemetics such as Zofran, and atypical antipsychotics. - Ordered magnesium level, pending. Will replete if needed. - Plan to repeat EKG in several days after stopping Alfuzosin. 5. Thrombopenia, unclear etiology, present on admission. Active. - Less likely secondary to DIC based on hemolysis labs, however, may be sequestration from sepsis and infection versus other etiologies such as liver disease, medications, immune mediated, malignancy, etc. - Ordered hemolysis workup including: Haptoglobin, fibrinogen, reticulocyte count, PT/INR. - Platelet count stable. Continue to monitor platelet count closely. 6. Acute normocytic anemia, unclear etiology, present on admission. Active. - Patient has borderline anemia possibly secondary to DIC from sepsis and infection versus dilution versus other causes such as vitamin deficiencies, blood loss, under production, etc. - The patient does take a vitamin B complex at home, therefore, may be secondary to vitamin B12 deficiency with active replacement. - Continue to monitor hemoglobin and hematocrit daily. 7. Acute hypokalemia, present on admission. Resolved. - Received KCl 40 mEq IV 1 in the ED.Ordered another KCl 40 mEq IV x 1 today. Current K is 4.1 - Will replete as needed. - Continue to monitor potassium daily. Chronic problems: 7. Hypertension, chronic. Stable. - Held lisinopril 20 mg twice a day and chlorthalidone 37.5 mg daily for now as BP low normal. 8. Hyperlipidemia, chronic. Stable. - Continue atorvastatin 80 mg daily at bedtime. 9. CAD s/p stenting. - Continue aspirin 81 mg daily and atorvastatin 80 mg daily at bedtime. 10. BPH, chronic. Stable. - Continue alfuzosin ER 10 mg and finasteride 5 mg daily. 11. Osteoarthritis, chronic. Stable. - Continue acetaminophen and [place] 5-325 mg 1 tab every 4 hours as needed for pain. 12. GERD, chronic. Stable. - Continue famotidine 20 mg twice a day. 13. Insomnia, chronic. Stable. - Continue zolpidem 5 mg as needed for insomnia. 14. Peripheral neuropathy, chronic. Stable. - Continue Lyrica 150 mg twice a day. PRN antiemetics: Maalox. PRN bowel regimen: Senna and MiraLAX. PRN analgesics: Tylenol. Patient is admitted under inpatient status with expected length of stay greater than 2 midnights due to severity of presenting symptoms, risk of adverse event, and complexity of treatment plan. . VTE Mechanical Devices: Intermittant Pneumatic CD Resuscitation Status: CPR: Attempt Resuscitation Attending Statement The patient was seen and examined together with Dr. Calero on 04/28/2016 and I agree with the history, exam and plan as outlined in the note above. Genie Calero DO Apr 28, 2016 12:38 Americo Jimenes MD Apr 29, 2016 12:42
--- NOTE | 2016-04-28 16:07 | NUR ---
took over care at 4pm
--- NOTE | 2016-04-28 16:20 | NUR ---
Activity Patient showered and ambulated around unit x 2. Denies SOB. Did report periodic GARCIA which was relived with PO px med. Does report to decreased appetite. States "nothing tastes good". VSS Continue frequent rounding.
[2016-04-29] VITALS (9 sets, daily range): BP systolic 130–151; BP diastolic 79–92; PULSE 46–68; RESP 18; O2SAT 93–97
[2016-04-29] MEDS: Heparin 5,000 Unit/mL Inj SUBQ SCH ×3 (00:30→15:48)
[2016-04-29] MEDS: Sodium Chloride LOK Flush 10 mL Syringe IVFLUSH SCH ×3 (01:18→15:49)
[2016-04-29] MEDS: Meropenem Inj 2,000 MG in 0.9% Sodium Chloride 100 ML IV SCH ×3 (04:43→20:14)
[2016-04-29] MEDS: HYDROcodone-APAP 5-325 mg Tablet PO PRN ×3 (04:50→17:11)
[2016-04-29] MEDS ORDERED: Ondansetron 2 mg/mL 2 mL Inj IVPUSH PRN (05:05)
--- NOTE | 2016-04-29 06:18 | NUR ---
restless: pt had restless nights sleep, up several times to BR. pt felt nauseated, order for Zofran obtained, and given. pt medicated with prn Vicodin, pt c/o headache 08/11. will continue to monitor pt
[2016-04-29 07:06] LABS: BASOPHILS % (AUTO) 0.7 % (0-3); EOSINOPHILS % (AUTO) 3.5 % (0-5); MONOCYTES % (AUTO) 23.3 % (4-12); Mean Corpuscular Hemoglobin 28.6 pg (27.0-35.0); Mean Corpuscular Volume 85.4 fL (81-100); NEUTROPHILS % (AUTO) 45.8 % (40-74); Platelet Count 80 bil/L (150-400)
--- NOTE | 2016-04-29 09:00 | NUR ---
LINDA signed. YASSINE Márquez
--- NOTE | 2016-04-29 09:22 | NUR ---
Social Work-readiness for discharge: Data:EMR Reviewed. Pt is on day 3 of hospitalization for sepsis per H&P. Pt is not medically stable, anticipate 1-2 more days. SW met with pt and Oleg at bedside to discuss discharge planning, SW role explained. Pt and Oleg confirm that pt will discharge home with no needs. Pt and Oleg state pt has enough help at home, declining any HH services. Per RN notes, pt has been up independent in his room. Pt's to provide transport home. No anticipated discharge needs. SW will continue to follow if need arise. Assessment:Pt who is independent at baseline. Plan:Pt to discharge home when medically stable via POV. No anticipated discharge needs. SW will continue to follow if need arise. YASSINE Márquez
--- NOTE | 2016-04-29 11:16 | PCM.PNMED ---
Subjective Date of Service Apr 29, 2016 Subjective Maico Yoon II is a 66-year-old male with a past medical history significant for coronary artery disease status post stenting, hypertension, and hyperlipidemia who presented to [facility] Emergency Department via EMS from the urgent care due to generalized weakness and flulike symptoms. Hospital day #4. Overnight: The patient was nauseous and was given Zofran overnight. Telemetry overnight was sinus bradycardia, heart rate mid 40 to 60's, without ectopy. The patient is resting in bed comfortably and in no acute distress. He reports one episode of urgent diarrhea this morning that he was unfortunately unable to make it to the bathroom He denies ear pain, rhinitis, shortness of breath, chest pain, abdominal pain, nausea, vomiting, fever, chills, or constipation. He is voiding without difficulty. He does continue to endorse dysuria which is chronic. He is up ambulating without assistance. . Exam Vital Signs Vital Sign - Last Date Time Temp Pulse Resp B/P Pulse Ox O2 Delivery O2 Flow Rate FiO2 04/29/16 09:05 52 04/29/16 08:50 36.9 18 130/83 95 Room Air 04/27/16 00:30 2.00 Intake and Output 04/28/16 04/28/16 04/29/16 Cumulative From/Thru 15:00 23:00 07:00 04/26/16 14:15 - 04/29/16 05:59 Intake Total 1343 ml 400 ml 52357 ml Output Total 1260 ml 2300 ml 9125 ml Balance 83 ml -1900 ml 2142 ml Intake Oral 1109 ml 400 ml 4764 ml IV Total 234 ml 6503 ml Output Urine Total 1260 ml 2300 ml 9125 ml # Bowel Movements 0 Exam General: Older gentleman lying in bed and in no acute distress, well-developed, well-nourished, appropriately interactive. HEENT: Normocephalic, atraumatic. External ears without defect. Pupils equal, round, and reactive to light. Anicteric sclerae, moist conjunctivae, and slight ptosis on the left. Oropharynx mild erythema without exudates. Neck: Supple with full range of motion. No jugular venous distension. No bruits. No lymphadenopathy or thyromegaly. Cardiovascular: Regular rate and rhythm with no murmurs, rubs, or gallops appreciated Pulmonary: Clear to auscultation bilaterally without rales, rhonchi or wheezes. Normal respiratory effort with no use of accessory muscles. Abdomen: Soft, nontender, nondistended, bowel sounds present. Hepatosplenomegaly. Extremities: No clubbing, cyanosis, or edema. Developed rigors during interview. Skin: Normal temperature, turgor, and texture; no rash, ulcers, or subcutaneous nodules appreciated. Neurological: Cranial nerves grossly intact. Normal muscle strength, tone, and bulk. Reflexes, coordination, and sensory function within normal limits. No known gait impairment. Psychiatric: Normal mood and affect. Alert and oriented to person, place, and time. . IVs and Medications Medications Reviewed: Medications were reviewed in detail Lab and Diagnostics Item Value Date Time Procalcitonin 28.03 ng/mL H 04/28/16 06 Procalcitonin 12.06 ng/mL H 04/29/16 06 Item Value Date Time Calcium Level 8.2 mg/dL L 04/29/16644 Total Bilirubin 0.6 mg/dL 04/29/16644 Aspartate Amino Transf (AST/SGOT) 39 U/L 04/29/16 06 Alanine Aminotransferase (ALT/SGPT) 33 U/L 04/29/16 06 Alkaline Phosphatase 69 U/L 04/29/16 06 Total Protein 5.7 g/dL L 04/29/16 0645 Albumin 3.4 g/dL 04/29/16 06 Result Diagram: 04/29/16 0604/29/16 06 Microbiology Urine culture shows no growth. Blood cultures positive 2:2 for Escherichia coli resistant to ampicillin. Repeat blood cultures 2 show no growth x 2 days. Respiratory viral PCR was negative. MRSA screen was negative. . X-Rays, CTs and MRIs CT CHEST, ABDOMEN AND PELVIS WTIH CONTRAST IMPRESSION: No diverticulitis is found. No pneumonia identified. Slight bilateral pleural effusions incidentally noted. A definite source of reported fevers and writers is not seen. 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 Hepatic and splenic enlargement, no varices or ascites is found. Depending on the clinical status followup by barium enema or colonoscopy may be warranted. Note is made of stool within the colon and diverticulosis along the colonic kuo but without definite acute diverticulitis. Accurate assessment for presence or absence of colitis or underlying colonic neoplasm would be quite limited in this study. Dictated by: Rafa Ambrocio M.D. on 04/27/2016 at 11:09 Approved by: Rafa Ambrocio M.D. on 04/27/2016 at 11:21 US ABDOMEN, LIMITED IMPRESSION: Mild hydropic appearance of the gallbladder which otherwise is normal. Dictated by: Eric Lopez RRA Interpreted: Crista He MD on 04/26/2016 at 13: 53 Transcribed by: FRANCISCO on 04/26/2016 at 13:54 Approved by: Crista He M.D. on 04/26/2016 at 17:09 X-RAY CHEST ONE VIEW, PORTABLE IMPRESSION: Patchy bibasilar opacities as above suggestive of infection or inflammation such as developing pneumonia. Dictated by: Crista He M.D. on 04/26/2016 at 10:53 Approved by: Crista He M.D. on 04/26/2016 at 10:53 . 12-lead ECG EKG: Sinus rhythm, heart rate 82, borderline normal axis, prolonged QTC of 593 ms, otherwise normal intervals, normal R-wave progression, PVC, no pathological Q waves or acute ischemic changes such as ST elevation or depression. . Assessment & Plan Maico Yoon II is a 66-year-old male with a past medical history significant for coronary artery disease status post stenting, hypertension, and hyperlipidemia who presented to [facility] Department via EMS from the urgent care due to generalized weakness and flulike symptoms. Hospital day #4. 1. Acute severe sepsis, present on admission. Resolving. - SIRS criteria met includes: Febrile (39.5C) and tachycardic (heart rate 100) with source pulmonary. - Early goal-directed therapy met including: IV fluid resuscitation and broad- spectrum antibiotics. 2. Acute community-acquired pneumonia, present on admission. Active. - Patient presented with generalized weakness and URI symptoms including fever, chills, rigors, myalgias, severe headache, mild lightheadedness, and nonproductive dry cough, sore throat. - Chest x-ray revealed patchy bibasilar opacities suggestive of infection or inflammation such as developing pneumonia, as above. - Respiratory viral PCR negative, as above. - Ordered sputum culture but unlikely to obtain as cough is non-productive. - Strep pneumoniae and legionella urine antigens negative, as above. - MRSA screen negative, as above. - Blood cultures positive 2:2 for Escherichia coli, as above. - Lactic acid initially elevated at 3.2 and has now normalized. - Procalcitonin trending down and continue to trend daily. - Continue IV fluid hydration with NS at 125 mL/hr. - May give IV Tylenol as needed for fevers and rigors. - Received ceftriaxone and doxycycline in the ED. Discontinued ceftriaxone 2 g IV every 24 hours and doxycycline 100 mg IV every 24 hours. Continue meropenem 2 g every 8 hours per infectious disease. - Ultrasound of abdomen showed mild hydropic appearance of the gallbladder, as above. Per Dr. Andrade, no further investigation of gallbladder is necessary, but HIDA scan could be ordered if further concerns persist. - Strongyloides antibody per infectious disease, pending. - Dr. Cruz of infectious disease was consulted and we appreciate his time and care of the patient. 3. Acute bacteremia, present on admission. Resolving. - Blood cultures positive 2:2 for Escherichia coli, as above. - Continue meropenem 2 g every 8 hours per infectious disease.. 4. Severely prolonged QTc, present on admission. Active. - Likely secondary to Alfuzosin which has been discontinued. Flomax does not have QTC prolonging effects reported, however, will avoid at this time as it is in the same medication class. Also discussed Lyrica with the upper caser which does not have QTc prolonging properties. - QTc interval prolonged at 593 ms and patient is at risk of Torsades de Pointes and sudden . - Avoid any QTC prolonging medications including azithromycin, antiemetics such as Zofran, and atypical antipsychotics. - Replete electrolytes as needed. - Plan to repeat EKG in several days after stopping Alfuzosin. 5. Thrombopenia, unclear etiology, present on admission. Active. - Less likely secondary to DIC based on hemolysis labs, however, may be sequestration from sepsis and infection versus other etiologies such as liver disease, medications, immune mediated, malignancy, etc. - Ordered hemolysis workup including: Haptoglobin, fibrinogen, reticulocyte count, PT/INR. - Platelet count stable. Continue to monitor platelet count closely. 6. Acute normocytic anemia, unclear etiology, present on admission. Active. - Patient has borderline anemia possibly secondary to DIC from sepsis and infection versus dilution versus other causes such as vitamin deficiencies, blood loss, under production, etc. - The patient does take a vitamin B complex at home, therefore, may be secondary to vitamin B12 deficiency with active replacement. - Continue to monitor hemoglobin and hematocrit daily. 7. Acute hypokalemia, present on admission. Resolved. - Received KCl 40 mEq IV 1 in the ED.Ordered another KCl 40 mEq IV x 1 today. Current K is 4.1 - Will replete as needed. - Continue to monitor potassium daily. Chronic problems: 7. Hypertension, chronic. Stable. - Held lisinopril 20 mg twice a day and chlorthalidone 37.5 mg daily for now as BP low normal. 8. Hyperlipidemia, chronic. Stable. - Continue atorvastatin 80 mg daily at bedtime. 9. CAD s/p stenting. - Continue aspirin 81 mg daily and atorvastatin 80 mg daily at bedtime. 10. BPH, chronic. Stable. - Continue alfuzosin ER 10 mg and finasteride 5 mg daily. 11. Osteoarthritis, chronic. Stable. - Continue acetaminophen and Gilbert 5-325 mg 1 tab every 4 hours as needed for pain. 12. GERD, chronic. Stable. - Continue famotidine 20 mg twice a day. 13. Insomnia, chronic. Stable. - Continue zolpidem 5 mg as needed for insomnia. 14. Peripheral neuropathy, chronic. Stable. - Continue Lyrica 150 mg twice a day. PRN antiemetics: Maalox. PRN bowel regimen: Senna and MiraLAX. PRN analgesics: Tylenol. Patient is admitted under inpatient status with expected length of stay greater than 2 midnights due to severity of presenting symptoms, risk of adverse event, and complexity of treatment plan. . VTE Mechanical Devices: Intermittant Pneumatic CD Resuscitation Status: CPR: Attempt Resuscitation Attending Statement The patient was seen and examined together with Dr. Faye on 04/29/2016 and I agree with the history, exam and plan as outlined in the note above. Rhina Faye DO Apr 29, 2016 11:16 Americo Jimenes MD Apr 29, 2016 12:43
[2016-04-29] MEDS: Potassium Chloride 20 mEq SR Tablet PO SCH (14:26)
[2016-04-30] VITALS (7 sets, daily range): BP systolic 147–150; BP diastolic 86–94; PULSE 46–59; RESP 18–19; O2SAT 94–96
[2016-04-30] MEDS: Heparin 5,000 Unit/mL Inj SUBQ SCH ×3 (00:25→16:46)
[2016-04-30] MEDS: Sodium Chloride LOK Flush 10 mL Syringe IVFLUSH SCH ×3 (00:25→16:30)
[2016-04-30] MEDS: Meropenem Inj 2,000 MG in 0.9% Sodium Chloride 100 ML IV SCH ×3 (04:37→19:54)
--- NOTE | 2016-04-30 04:58 | NUR ---
Sustained HR 36-45 A&OX3. Patient denies SOB. Denies chest pain. HR sustained 36-45 throughout the night, MD notified, no further orders. Asymptomatic, slept most of the night. Pleasant and cooperative with care.
[2016-04-30 06:18] LABS: BASOPHILS % (AUTO) 0.8 % (0-3); EOSINOPHILS % (AUTO) 5.1 % (0-5); Mean Corpuscular Hemoglobin 28.8 pg (27.0-35.0); Mean Corpuscular Volume 85.4 fL (81-100); NEUTROPHILS % (AUTO) 41.9 % (40-74); Platelet Count 98 bil/L (150-400)
[2016-04-30] MEDS: HYDROcodone-APAP 5-325 mg Tablet PO PRN ×4 (07:59→21:13)
[2016-04-30] MEDS ORDERED: Potassium Chloride 20 mEq SR Tablet PO SCH (08:00)
[2016-04-30] MEDS: Potassium Chloride 20 mEq SR Tablet PO SCH (09:45)
--- NOTE | 2016-04-30 11:27 | PCM.PNMED ---
Subjective Date of Service Apr 30, 2016 Subjective Maico Yoon II is a 66-year-old male with a past medical history significant for coronary artery disease status post stenting, hypertension, and hyperlipidemia who presented to [facility] Emergency Department via EMS from the urgent care due to generalized weakness and flulike symptoms. Hospital day #5. Overnight: No acute overnight events. Telemetry overnight was sinus bradycardia, heart rate in mid 50 to 60's, without ectopy. The patient is resting in bed comfortably and in no acute distress. He denies shortness of breath, chest pain, abdominal pain, nausea, vomiting, fever , chills. He did have two more episodes of diarrhea this morning. He c/o headache this morning for which he received Tylenol. He is voiding without difficulty. He is up ambulating without assistance. . Exam Vital Signs Vital Sign - Last Date Time Temp Pulse Resp B/P Pulse Ox O2 Delivery O2 Flow Rate FiO2 04/30/16 05:52 36.7 59 18 149/90 94 Room Air 04/27/16 00:30 2.00 Intake and Output 04/29/16 04/29/16 04/30/16 Cumulative From/Thru 14:59 22:59 06:59 04/26/16 14:15 - 04/30/16 06:46 Intake Total 1236 ml 529 ml 89190 ml Output Total 2400 ml 1650 ml 63051 ml Balance -1164 ml -1121 ml -143 ml Intake Oral 1000 ml 300 ml 6064 ml IV Total 236 ml 229 ml 6968 ml Output Urine Total 2400 ml 1650 ml 43379 ml # Bowel Movements 1 1 Exam General: well-developed, well-nourished, appropriately interactive, no acute distress. HEENT: Normocephalic, atraumatic. Pupils equal, round, and reactive to light. Anicteric sclerae , slight ptosis on the left. Neck: Supple with full range of motion. No jugular venous distension. Cardiovascular: Regular rate and rhythm with no murmurs, rubs, or gallops appreciated Pulmonary: Clear to auscultation bilaterally without rales, rhonchi or wheezes. Abdomen: Soft, nontender, nondistended, bowel sounds present. Hepatosplenomegaly. Extremities: No clubbing, cyanosis, or edema. Neurological: Cranial nerves grossly intact. Psychiatric: Normal mood and affect. . Lab and Diagnostics Result Diagram: 04/30/16 0505 04/30/16 0505 Microbiology Urine culture shows no growth. Blood cultures positive 2:2 for Escherichia coli resistant to ampicillin. Repeat blood cultures 2 show no growth x 2 days. Respiratory viral PCR was negative. MRSA screen was negative. . X-Rays, CTs and MRIs CT CHEST, ABDOMEN AND PELVIS WTIH CONTRAST IMPRESSION: No diverticulitis is found. No pneumonia identified. Slight bilateral pleural effusions incidentally noted. A definite source of reported fevers and writers is not seen. 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 Hepatic and splenic enlargement, no varices or ascites is found. Depending on the clinical status followup by barium enema or colonoscopy may be warranted. Note is made of stool within the colon and diverticulosis along the colonic kuo but without definite acute diverticulitis. Accurate assessment for presence or absence of colitis or underlying colonic neoplasm would be quite limited in this study. Dictated by: Rafa Ambrocio M.D. on 04/27/2016 at 11:09 Approved by: Rafa Ambrocio M.D. on 04/27/2016 at 11:21 US ABDOMEN, LIMITED IMPRESSION: Mild hydropic appearance of the gallbladder which otherwise is normal. Dictated by: Eric Lopez [facility] Interpreted: Crista He MD on 04/26/2016 at 13: 53 Transcribed by: FRANCISCO on 04/26/2016 at 13:54 Approved by: Crista He M.D. on 04/26/2016 at 17:09 X-RAY CHEST ONE VIEW, PORTABLE IMPRESSION: Patchy bibasilar opacities as above suggestive of infection or inflammation such as developing pneumonia. Dictated by: Crista He M.D. on 04/26/2016 at 10:53 Approved by: Crista He M.D. on 04/26/2016 at 10:53 . 12-lead ECG EKG: Sinus rhythm, heart rate 82, borderline normal axis, prolonged QTC of 593 ms, otherwise normal intervals, normal R-wave progression, PVC, no pathological Q waves or acute ischemic changes such as ST elevation or depression. . Assessment & Plan Maico Yoon II is a 66-year-old male with a past medical history significant for coronary artery disease status post stenting, hypertension, and hyperlipidemia who presented to [facility] Department via EMS from the urgent care due to generalized weakness and flulike symptoms. Hospital day #5. 1. Acute severe sepsis, present on admission. Resolving. - SIRS criteria met includes: Febrile (39.5C) and tachycardic (heart rate 100) with source pulmonary. - Early goal-directed therapy met including: IV fluid resuscitation and broad- spectrum antibiotics. 2. Acute community-acquired pneumonia, present on admission. Active. - Patient presented with generalized weakness and URI symptoms including fever, chills, rigors, myalgias, severe headache, mild lightheadedness, and nonproductive dry cough, sore throat. - Chest x-ray revealed patchy bibasilar opacities suggestive of infection or inflammation such as developing pneumonia, as above. - Respiratory viral PCR negative, as above. - Ordered sputum culture but unlikely to obtain as cough is non-productive. - Strep pneumoniae and legionella urine antigens negative, as above. - MRSA screen negative, as above. - Blood cultures positive 2:2 for Escherichia coli, as above. - Lactic acid initially elevated at 3.2 and has now normalized. - Procalcitonin trending down and continue to trend daily, 6.18 today (12.06). - Discontinue IV fluid hydration with NS at 125 mL/hr as patient is now eating - May give IV Tylenol as needed for fevers and rigors. - Received ceftriaxone and doxycycline in the ED. Discontinued ceftriaxone 2 g IV every 24 hours and doxycycline 100 mg IV every 24 hours. Continue meropenem 2 g every 8 hours per infectious disease. - Ultrasound of abdomen showed mild hydropic appearance of the gallbladder, as above. Per Dr. Andrade, no further investigation of gallbladder is necessary, but HIDA scan could be ordered if further concerns persist. - Strongyloides antibody per infectious disease, pending. - Dr. Cruz of infectious disease was consulted and we appreciate his time and care of the patient. 3. Acute bacteremia, present on admission. Resolving. - Blood cultures positive 2:2 for Escherichia coli, as above. - Continue meropenem 2 g every 8 hours per infectious disease.. 4. Severely prolonged QTc, present on admission. Active. - Likely secondary to Alfuzosin which has been discontinued. Flomax does not have QTC prolonging effects reported, however, will avoid at this time as it is in the same medication class. Also discussed Lyrica with the grading clerk which does not have QTc prolonging properties. - QTc interval prolonged at 593 ms and patient is at risk of Torsades de Pointes and sudden . - Avoid any QTC prolonging medications including azithromycin, antiemetics such as Zofran, and atypical antipsychotics. - Replete electrolytes as needed. - Repeat EKG today showed QTC within normal range 5. Thrombopenia, unclear etiology, present on admission. Active. - Less likely secondary to DIC based on hemolysis labs, however, may be sequestration from sepsis and infection versus other etiologies such as liver disease, medications, immune mediated, malignancy, etc. - Ordered hemolysis workup including: Haptoglobin, fibrinogen, reticulocyte count, PT/INR. - Platelet count stable. Continue to monitor platelet count closely. 6. Acute normocytic anemia, unclear etiology, present on admission. Active. - Patient has borderline anemia possibly secondary to DIC from sepsis and infection versus dilution versus other causes such as vitamin deficiencies, blood loss, under production, etc. - The patient does take a vitamin B complex at home, therefore, may be secondary to vitamin B12 deficiency with active replacement. - Continue to monitor hemoglobin and hematocrit daily. 7. Acute hypokalemia, present on admission. Resolved. - Received KCl 40 mEq IV 1 in the ED.Ordered another KCl 40 mEq IV x 1 2 days ago. Current K is 4.6 - Will replete as needed. - Continue to monitor potassium daily. Chronic problems: 7. Hypertension, chronic. Stable. - Lisinopril 20 mg twice a day and chlorthalidone 37.5 mg daily. 8. Hyperlipidemia, chronic. Stable. - Continue atorvastatin 80 mg daily at bedtime. 9. CAD s/p stenting. - Continue aspirin 81 mg daily and atorvastatin 80 mg daily at bedtime. 10. BPH, chronic. Stable. - Continue alfuzosin ER 10 mg and finasteride 5 mg daily. 11. Osteoarthritis, chronic. Stable. - Continue acetaminophen and Millen 5-325 mg 1 tab every 4 hours as needed for pain. 12. GERD, chronic. Stable. - Continue famotidine 20 mg twice a day. 13. Insomnia, chronic. Stable. - Continue zolpidem 5 mg as needed for insomnia. 14. Peripheral neuropathy, chronic. Stable. - Continue Lyrica 150 mg twice a day. PRN antiemetics: Maalox. PRN bowel regimen: Senna and MiraLAX. PRN analgesics: Tylenol. Patient is admitted under inpatient status with expected length of stay greater than 2 midnights due to severity of presenting symptoms, risk of adverse event, and complexity of treatment plan. Disposition: Most likely Saturday on oral antibiotic. .The patient was seen and examined together with Dr. Calero on 04/30/15 and I have added additional information to the note above. VTE Mechanical Devices: Intermittant Pneumatic CD Resuscitation Status: CPR: Attempt Resuscitation Genie Calero DO Apr 30, 2016 09:26 Daisy Griffiths DO Apr 30, 2016 18:05
[2016-05-01] VITALS (7 sets, daily range): BP systolic 129–143; BP diastolic 68–94; PULSE 53–73; RESP 18–20; O2SAT 95–97
[2016-05-01] MEDS: Heparin 5,000 Unit/mL Inj SUBQ SCH ×3 (00:29→18:16)
[2016-05-01] MEDS: Sodium Chloride LOK Flush 10 mL Syringe IVFLUSH SCH ×3 (00:29→18:16)
--- NOTE | 2016-05-01 03:25 | NUR ---
Pain: Pt c/o L foot tingling/pain prior to bed, pt states this is chronic pain due to neuropathy; medication administered, effective. Pt denied SOB or chest pain. Pt slept most of the night, pleasant and cooperative with care.
[2016-05-01] MEDS: Meropenem Inj 2,000 MG in 0.9% Sodium Chloride 100 ML IV SCH ×3 (03:53→20:29)
[2016-05-01 06:36] LABS: BASOPHILS % (AUTO) 0.9 % (0-3); EOSINOPHILS % (AUTO) 5.2 % (0-5); MONOCYTES % (AUTO) 14.7 % (4-12); Mean Corpuscular Hemoglobin 28.5 pg (27.0-35.0); Mean Corpuscular Volume 85.3 fL (81-100); NEUTROPHILS % (AUTO) 47.3 % (40-74); Platelet Count 115 bil/L (150-400)
[2016-05-01] MEDS: Potassium Chloride 20 mEq SR Tablet PO SCH (07:50)
[2016-05-01] MEDS: HYDROcodone-APAP 5-325 mg Tablet PO PRN ×3 (10:29→20:50)
--- NOTE | 2016-05-01 16:17 | NUR ---
Pain Pt c/o of left foot tingling/needles and pain x 2, given [place] both occasions with good relief 10/11 to 05/11. Pt states this is from neuropathy and is chronic.
--- NOTE | 2016-05-01 17:03 | PCM.PNMED ---
Subjective Date of Service May 01, 2016 Subjective Maico Yoon II is a 66-year-old male with a past medical history significant for coronary artery disease status post stenting, hypertension, and hyperlipidemia who presented to [facility] Emergency Department via EMS from the urgent care due to generalized weakness and flulike symptoms. Hospital day #6. Overnight: No acute overnight events. Telemetry overnight was sinus bradycardia, heart rate in mid 50 to 60's, without ectopy. The patient is resting in bed comfortably and in no acute distress. He denies shortness of breath, chest pain, abdominal pain, nausea, vomiting, fever , chills. He did have two more episodes of diarrhea this morning but C-dif test was negative. He c/o mild right upper abdominal quadrant pain this morning. He is voiding without difficulty. He is up ambulating without assistance. Exam Vital Signs Vital Sign - Last Date Time Temp Pulse Resp B/P Pulse Ox O2 Delivery O2 Flow Rate FiO2 05/01/16 14:14 56 20 129/86 96 Room Air 05/01/16 09:34 36.9 04/27/16 00:30 2.00 Intake and Output 04/30/16 04/30/16 05/01/16 Cumulative From/Thru 15:00 23:00 07:00 04/26/16 14:15 - 05/01/16 06:15 Intake Total 2049 ml 436 ml 35648 ml Output Total 2950 ml 99485 ml Balance 2049 ml -2514 ml -608 ml Intake Oral 1836 ml 436 ml 8336 ml IV Total 213 ml 7181 ml Output Urine Total 2950 ml 75522 ml # Bowel Movements 1 Exam General: well-developed, well-nourished, appropriately interactive, no acute distress. HEENT: Normocephalic, atraumatic. Pupils equal, round, and reactive to light. Anicteric sclerae , slight ptosis on the left. Neck: Supple with full range of motion. No jugular venous distension. Cardiovascular: Regular rate and rhythm with no murmurs, rubs, or gallops appreciated Pulmonary: Clear to auscultation bilaterally without rales, rhonchi or wheezes. Abdomen: Soft, mild tenderness to palpation at RUQ, nondistended, bowel sounds present. Hepatosplenomegaly. Extremities: No clubbing, cyanosis, or edema. Neurological: Cranial nerves grossly intact. Psychiatric: Normal mood and affect. Lab and Diagnostics Result Diagram: 05/01/16 0525 05/01/16 05 Microbiology Urine culture shows no growth. Blood cultures positive 2:2 for Escherichia coli resistant to ampicillin. Repeat blood cultures 2 show no growth x 2 days. Respiratory viral PCR was negative. MRSA screen was negative. . X-Rays, CTs and MRIs CT CHEST, ABDOMEN AND PELVIS WTIH CONTRAST IMPRESSION: No diverticulitis is found. No pneumonia identified. Slight bilateral pleural effusions incidentally noted. A definite source of reported fevers and writers is not seen. 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 Hepatic and splenic enlargement, no varices or ascites is found. Depending on the clinical status followup by barium enema or colonoscopy may be warranted. Note is made of stool within the colon and diverticulosis along the colonic kuo but without definite acute diverticulitis. Accurate assessment for presence or absence of colitis or underlying colonic neoplasm would be quite limited in this study. Dictated by: Rafa Ambrocio M.D. on 04/27/2016 at 11:09 Approved by: Rafa Ambrocio M.D. on 04/27/2016 at 11:21 US ABDOMEN, LIMITED IMPRESSION: Mild hydropic appearance of the gallbladder which otherwise is normal. Dictated by: Eric Lopze RRA Interpreted: Crista He MD on 04/26/2016 at 13: 53 Transcribed by: FRANCISCO on 04/26/2016 at 13:54 Approved by: Crista He M.D. on 04/26/2016 at 17:09 X-RAY CHEST ONE VIEW, PORTABLE IMPRESSION: Patchy bibasilar opacities as above suggestive of infection or inflammation such as developing pneumonia. Dictated by: Crista He M.D. on 04/26/2016 at 10:53 Approved by: Crista He M.D. on 04/26/2016 at 10:53 . 12-lead ECG EKG: Sinus rhythm, heart rate 82, borderline normal axis, prolonged QTC of 593 ms, otherwise normal intervals, normal R-wave progression, PVC, no pathological Q waves or acute ischemic changes such as ST elevation or depression. . Assessment & Plan Maico Karrie II is a 66-year-old male with a past medical history significant for coronary artery disease status post stenting, hypertension, and hyperlipidemia who presented to [facility] Emergency Department via EMS from the urgent care due to generalized weakness and flulike symptoms. Hospital day #65. 1. Acute severe sepsis, present on admission. Resolving. - SIRS criteria met includes: Febrile (39.5C) and tachycardic (heart rate 100) with source pulmonary. - Early goal-directed therapy met including: IV fluid resuscitation and broad- spectrum antibiotics. 2. Acute community-acquired pneumonia, present on admission. Active. - Patient presented with generalized weakness and URI symptoms including fever, chills, rigors, myalgias, severe headache, mild lightheadedness, and nonproductive dry cough, sore throat. - Chest x-ray revealed patchy bibasilar opacities suggestive of infection or inflammation such as developing pneumonia, as above. - Respiratory viral PCR negative, as above. - Ordered sputum culture but unlikely to obtain as cough is non-productive. - Strep pneumoniae and legionella urine antigens negative, as above. - MRSA screen negative, as above. - Blood cultures positive 2:2 for Escherichia coli, as above. Repeat blood cultures are negative. - Lactic acid initially elevated at 3.2 and has now normalized. - Procalcitonin trending down and continue to trend daily, 3.04 today (6.18). - Discontinue IV fluid hydration with NS at 125 mL/hr as patient is now eating - May give IV Tylenol as needed for fevers and rigors. - Received ceftriaxone and doxycycline in the ED. Discontinued ceftriaxone 2 g IV every 24 hours and doxycycline 100 mg IV every 24 hours. Continue meropenem 2 g every 8 hours per infectious disease. Per infectious disease, will be planning on discharging patient on oral ceftriaxone for 5 days as soon as his procalcitonin is below 1.0. Dr. Cruz will see the patient in his clinic on May 09. - Ultrasound of abdomen showed mild hydropic appearance of the gallbladder, as above. Per Dr. Andrade, no further investigation of gallbladder is necessary, but HIDA scan could be ordered if further concerns persist. - Strongyloides antibody per infectious disease, negative. - Dr. Cruz of infectious disease was consulted and we appreciate his time and care of the patient. 3. Chronic hepatitis C, present on admission. - Patient is positive for hep C antibodies. Results discussed with the patient in the room in the presence of his . - Hep C Genotype and quantification ordered. - Patient will follow up with PCP upon discharge. - We will test for HIV if patient permits. 4. Acute bacteremia, present on admission. Resolving. - Likely secondary to the kidney disease and/or smoke pyelonephritis. - Blood cultures positive 2:2 for Escherichia coli, as above. - Continue meropenem 2 g every 8 hours per infectious disease. 5. Severely prolonged QTc, present on admission. Active. - Likely secondary to Alfuzosin which has been discontinued. Flomax does not have QTC prolonging effects reported, however, will avoid at this time as it is in the same medication class. Also discussed Lyrica with the sales agent pest control service which does not have QTc prolonging properties. - QTc interval prolonged at 593 ms and patient is at risk of Torsades de Pointes and sudden , Repeat EKG on 04/30/16 showed QTC within normal range - Avoid any QTC prolonging medications including azithromycin, antiemetics such as Zofran, and atypical antipsychotics. - Replete electrolytes as needed. 6. Thrombopenia, unclear etiology, present on admission. Active. - Less likely secondary to DIC based on hemolysis labs, however, may be sequestration from sepsis and infection versus other etiologies such as liver disease, medications, immune mediated, malignancy, etc. - Ordered hemolysis workup including: Haptoglobin, fibrinogen, reticulocyte count, PT/INR. - Platelet count stable. Continue to monitor platelet count closely. 7. Acute normocytic anemia, unclear etiology, present on admission. Active. - Patient has borderline anemia possibly secondary to DIC from sepsis and infection versus dilution versus other causes such as vitamin deficiencies, blood loss, under production, etc. - The patient does take a vitamin B complex at home, therefore, may be secondary to vitamin B12 deficiency with active replacement. - Continue to monitor hemoglobin and hematocrit daily. 8. Acute hypokalemia, present on admission. Resolved. - Received KCl 40 mEq IV 1 in the ED.Ordered another KCl 40 mEq IV x 1 2 days ago. Current K is 4.1. - Will replete as needed. - Continue to monitor potassium daily. Chronic problems: 9. Hypertension, chronic. Stable. - Lisinopril 20 mg twice a day and chlorthalidone 37.5 mg daily. 10. Hyperlipidemia, chronic. Stable. - Continue atorvastatin 80 mg daily at bedtime. 11. CAD s/p stenting. - Continue aspirin 81 mg daily and atorvastatin 80 mg daily at bedtime. 12. BPH, chronic. Stable. - Continue alfuzosin ER 10 mg and finasteride 5 mg daily. 13. Osteoarthritis, chronic. Stable. - Continue acetaminophen and [place] 5-325 mg 1 tab every 4 hours as needed for pain. 14. GERD, chronic. Stable. - Continue famotidine 20 mg twice a day. 15. Insomnia, chronic. Stable. - Continue zolpidem 5 mg as needed for insomnia. 16. Peripheral neuropathy, chronic. Stable. - Continue Lyrica 150 mg twice a day. PRN antiemetics: Maalox. PRN bowel regimen: Senna and MiraLAX. PRN analgesics: Tylenol. Patient is admitted under inpatient status with expected length of stay greater than 2 midnights due to severity of presenting symptoms, risk of adverse event, and complexity of treatment plan. Disposition: Most likely in 1-2 days on oral antibiotic with follow-up with Dr. Cruz and PCP for hep C workup. VTE Mechanical Devices: Intermittant Pneumatic CD Resuscitation Status: CPR: Attempt Resuscitation Attending Statement The patient was seen and examined together with on 05/01/16 and I have added additional information to the note above. Genie Calero DO May 01, 2016 15:55 Daisy Griffiths DO May 02, 2016 07:34
[2016-05-02] MEDS: Sodium Chloride LOK Flush 10 mL Syringe IVFLUSH SCH ×3 (00:30→15:38)
[2016-05-02] MEDS: Heparin 5,000 Unit/mL Inj SUBQ SCH ×3 (00:48→15:37)
[2016-05-02] MEDS: Meropenem Inj 2,000 MG in 0.9% Sodium Chloride 100 ML IV SCH ×3 (04:07→20:25)
[2016-05-02 05:49] VITALS: BP 129/87; PULSE 58; RESP 18; O2SAT 93
[2016-05-02] MEDS: HYDROcodone-APAP 5-325 mg Tablet PO PRN ×4 (05:53→20:26)
--- NOTE | 2016-05-02 06:02 | NUR ---
PAIN Pt c/o "pins and needles" in BLE and headache, all rated 5-6 on a 0-10 pain scale. Pt given [place] (5-325 mg) x2 for px. will reassess in 30 min. Call light w/in reach and pt agrees to uses for needs. Addendum: 05/02/16 at 0625 by TESFAYE SAMUELS Reassessment Pt indicated headache is now rated 3 (0-10) and is tolerable.
[2016-05-02 06:16] LABS: BASOPHILS % (AUTO) 1.2 % (0-3); MONOCYTES % (AUTO) 13.5 % (4-12); Mean Corpuscular Hemoglobin 28.9 pg (27.0-35.0); Mean Corpuscular Volume 85.5 fL (81-100); Platelet Count 151 bil/L (150-400)
[2016-05-02] MEDS: Potassium Chloride 20 mEq SR Tablet PO SCH (10:24)
--- NOTE | 2016-05-02 13:25 | NUR ---
Social Work: Readiness for d/c Data: Pt is on day 6 of hospitalization. EMR reviewed, pt discussed in rounds. MD states pt likely to d/c tomorrow. Pt currently on IVABX, pt to transition to POABX tomorrow, per MD, before going home. No further d/c planning needs anticipated at this time. CRISIS WORKER will continue to follow if needs arise. Assessment: Pt who is independent at baseline. Plan: Pt will d/c home via POV, likely tomorrow.MD states pt to transition to POABX before d/c. No further d/c planning needs anticipated at this time. CRISIS WORKER will continue to follow if needs arise. YASSINE [place]
[2016-05-02 14:09] VITALS: BP 135/89; PULSE 58; RESP 20; O2SAT 95
--- NOTE | 2016-05-02 14:49 | PCM.PNMED ---
Subjective Date of Service May 02, 2016 Subjective Maico Yoon II is a 66-year-old male with a past medical history significant for coronary artery disease status post stenting, hypertension, and hyperlipidemia who presented to [facility] Emergency Department via EMS from the urgent care due to generalized weakness and flulike symptoms. Hospital day #7. Overnight: No acute overnight events. The patient is resting in bed comfortably and in no acute distress. He denies shortness of breath, chest pain, abdominal pain, nausea, vomiting, fever , chills. He is voiding without difficulty. He is up ambulating without assistance. Exam Vital Signs Vital Sign - Last Date Time Temp Pulse Resp B/P Pulse Ox O2 Delivery O2 Flow Rate FiO2 05/02/16 05:49 36.6 58 18 129/87 93 Room Air 04/27/16 00:30 2.00 Intake and Output 05/01/16 05/01/16 05/02/16 Cumulative From/Thru 15:00 23:00 07:00 04/26/16 14:15 - 05/02/16 06:05 Intake Total 1650 ml 400 ml 36400 ml Output Total 2725 ml 2175 ml 71667 ml Balance -1075 ml -1775 ml -3458 ml Intake Oral 1508 ml 400 ml 84097 ml IV Total 132 ml 7313 ml Tube Irrigant 10 ml 10 ml Output Urine Total 2725 ml 2175 ml 00944 ml # Bowel Movements 1 Exam General: well-developed, well-nourished, appropriately interactive, no acute distress. HEENT: Normocephalic, atraumatic. Pupils equal, round, and reactive to light. Anicteric sclerae , slight ptosis on the left. Neck: Supple with full range of motion. No jugular venous distension. Cardiovascular: Regular rate and rhythm with no murmurs, rubs, or gallops appreciated Pulmonary: Clear to auscultation bilaterally without rales, rhonchi or wheezes. Abdomen: Soft, mild tenderness to palpation at RUQ, nondistended, bowel sounds present. Hepatosplenomegaly. Extremities: No clubbing, cyanosis, or edema. Neurological: Cranial nerves grossly intact. Psychiatric: Normal mood and affect. Lab and Diagnostics Result Diagram: 05/02/1654405/02/16544 Microbiology Urine culture shows no growth. Blood cultures positive 2:2 for Escherichia coli resistant to ampicillin. Repeat blood cultures 2 show no growth x 2 days. Respiratory viral PCR was negative. MRSA screen was negative. . X-Rays, CTs and MRIs CT CHEST, ABDOMEN AND PELVIS WTIH CONTRAST IMPRESSION: No diverticulitis is found. No pneumonia identified. Slight bilateral pleural effusions incidentally noted. A definite source of reported fevers and writers is not seen. 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 Hepatic and splenic enlargement, no varices or ascites is found. Depending on the clinical status followup by barium enema or colonoscopy may be warranted. Note is made of stool within the colon and diverticulosis along the colonic kuo but without definite acute diverticulitis. Accurate assessment for presence or absence of colitis or underlying colonic neoplasm would be quite limited in this study. Dictated by: Rafa Ambrocio M.D. on 04/27/2016 at 11:09 Approved by: Rafa Ambrocio M.D. on 04/27/2016 at 11:21 US ABDOMEN, LIMITED IMPRESSION: Mild hydropic appearance of the gallbladder which otherwise is normal. Dictated by: Eric Lopez RRA Interpreted: Crista He MD on 04/26/2016 at 13: 53 Transcribed by: FRANCISCO on 04/26/2016 at 13:54 Approved by: Crista He M.D. on 04/26/2016 at 17:09 X-RAY CHEST ONE VIEW, PORTABLE IMPRESSION: Patchy bibasilar opacities as above suggestive of infection or inflammation such as developing pneumonia. Dictated by: Crista He M.D. on 04/26/2016 at 10:53 Approved by: Crista He M.D. on 04/26/2016 at 10:53 . 12-lead ECG EKG: Sinus rhythm, heart rate 82, borderline normal axis, prolonged QTC of 593 ms, otherwise normal intervals, normal R-wave progression, PVC, no pathological Q waves or acute ischemic changes such as ST elevation or depression. . Assessment & Plan Maico Yoon II is a 66-year-old male with a past medical history significant for coronary artery disease status post stenting, hypertension, and hyperlipidemia who presented to [facility] Emergency Department via EMS from the urgent care due to generalized weakness and flulike symptoms. Hospital day #7. 1. Acute severe sepsis, present on admission. Resolving. - SIRS criteria met includes: Febrile (39.5C) and tachycardic (heart rate 100) with source pulmonary. - Early goal-directed therapy met including: IV fluid resuscitation and broad- spectrum antibiotics. 2. Acute community-acquired pneumonia, present on admission. Active. - Patient presented with generalized weakness and URI symptoms including fever, chills, rigors, myalgias, severe headache, mild lightheadedness, and nonproductive dry cough, sore throat. - Chest x-ray revealed patchy bibasilar opacities suggestive of infection or inflammation such as developing pneumonia, as above. - Respiratory viral PCR negative, as above. - Ordered sputum culture but unlikely to obtain as cough is non-productive. - Strep pneumoniae and legionella urine antigens negative, as above. - MRSA screen negative, as above. - Blood cultures positive 2:2 for Escherichia coli, as above. Repeat blood cultures are negative. - Procalcitonin trending down and continue to trend daily, 1.81 today, 3.04 yesterday. - Discontinue IV fluid hydration with NS at 125 mL/hr as patient is now eating - May give IV Tylenol as needed for fevers and rigors. - Received ceftriaxone and doxycycline in the ED. Discontinued ceftriaxone 2 g IV every 24 hours and doxycycline 100 mg IV every 24 hours. Continue meropenem 2 g every 8 hours per infectious disease. We will talk to Dr. Cruz again today, as patient's E. coli infection not sensitive to ciprofloxacin, as it was thought earlier, so another oral antibiotic will need to be chosen, if any, to be continued at home upon discharge. Ertapenem KATHY <0.5, cefepime <1, gentamycin <1, tobromycin <1, ceftriaxone <1. Cefdinir, a 3-rd generation PO cephalosporin should provide good coverage according to microlab. Will run by Dr. Cruz today. Dr. Cruz will see the patient in his clinic on May 09. - Ultrasound of abdomen showed mild hydropic appearance of the gallbladder, as above. Per Dr. Andrade, no further investigation of gallbladder is necessary, but HIDA scan could be ordered if further concerns persist. - Strongyloides antibody per infectious disease, negative. - Dr. Cruz of infectious disease was consulted and we appreciate his time and care of the patient. 3. Chronic hepatitis C, present on admission. - Patient is positive for hep C antibodies. Results discussed with the patient in the room in the presence of his . - Hep C Genotype and quantification ordered. - Patient will follow up with PCP upon discharge. - We will test for HIV if patient permits. 4. Acute bacteremia, present on admission. Resolving. - Likely secondary to the kidney disease and/or smoke pyelonephritis. - Blood cultures positive 2:2 for Escherichia coli, as above. - Continue meropenem 2 g every 8 hours per infectious disease. 5. Severely prolonged QTc, present on admission. Resolved - Likely secondary to Alfuzosin which has been discontinued. Flomax does not have QTC prolonging effects reported, however, will avoid at this time as it is in the same medication class. Also discussed Lyrica with the lining folder which does not have QTc prolonging properties. - QTc interval prolonged at 593 ms and patient is at risk of Torsades de Pointes and sudden , Repeat EKG on 04/30/16 showed QTC within normal range - Avoid any QTC prolonging medications including azithromycin, antiemetics such as Zofran, and atypical antipsychotics. - Replete electrolytes as needed. 6. Lactic acidosis, present on admission. Resolved. - Lactic acid initially elevated at 3.2 and has now normalized. 7. Thrombopenia, unclear etiology, present on admission. Resolved - Less likely secondary to DIC based on hemolysis labs, however, may be sequestration from sepsis and infection versus other etiologies such as liver disease, medications, immune mediated, malignancy, etc. - Ordered hemolysis workup including: Haptoglobin, fibrinogen, reticulocyte count, PT/INR. - Platelet count stable. Continue to monitor platelet count closely. 8. Acute normocytic anemia, unclear etiology, present on admission. Resolved. - Patient has borderline anemia possibly secondary to DIC from sepsis and infection versus dilution versus other causes such as vitamin deficiencies, blood loss, under production, etc. - The patient does take a vitamin B complex at home, therefore, may be secondary to vitamin B12 deficiency with active replacement. - Continue to monitor hemoglobin and hematocrit daily. 9. Acute hypokalemia, present on admission. Resolved. - Received KCl 40 mEq IV 1 in the ED.Ordered another KCl 40 mEq IV x 1 2 days ago. Current K is 4.2. - Will replete as needed. - Continue to monitor potassium daily. Chronic problems: 10. Hypertension, chronic. Stable. - Lisinopril 20 mg twice a day and chlorthalidone 37.5 mg daily. 11. Hyperlipidemia, chronic. Stable. - Continue atorvastatin 80 mg daily at bedtime. 12. CAD s/p stenting. - Continue aspirin 81 mg daily and atorvastatin 80 mg daily at bedtime. 13. BPH, chronic. Stable. - Continue alfuzosin ER 10 mg and finasteride 5 mg daily. 14. Osteoarthritis, chronic. Stable. - Continue acetaminophen and [place] 5-325 mg 1 tab every 4 hours as needed for pain. 15. GERD, chronic. Stable. - Continue famotidine 20 mg twice a day. 16. Insomnia, chronic. Stable. - Continue zolpidem 5 mg as needed for insomnia. 17. Peripheral neuropathy, chronic. Stable. - Continue Lyrica 150 mg twice a day. PRN antiemetics: Maalox. PRN bowel regimen: Senna and MiraLAX. PRN analgesics: Tylenol. Patient is admitted under inpatient status with expected length of stay greater than 2 midnights due to severity of presenting symptoms, risk of adverse event, and complexity of treatment plan. Disposition: Most likely in 1-2 days on oral antibiotic with follow-up with Dr. Cruz and PCP for hep C workup. VTE Mechanical Devices: Intermittant Pneumatic CD Resuscitation Status: CPR: Attempt Resuscitation Attending Statement The patient was seen and examined together with Dr. Calero on 05/02/16 and I agree with the history, exam and plan as outlined in the note above. Genie Calero DO May 02, 2016 08:31 Daisy Griffiths DO May 03, 2016 07:32
--- NOTE | 2016-05-02 18:36 | NUR ---
Activity: Patient has been ambulating in the halls today. Patient continues to be on IV antibiotics and his condition continues to improve.
[2016-05-02 20:33] VITALS: BP 135/89; PULSE 66; RESP 18; O2SAT 95
--- NOTE | 2016-05-02 23:10 | NUR ---
Abdominal discomfort Pt c/o upper abdominal discomfort and bloating. Pt states "i feel like things are backing up" and reports a sensation of bloating and fullness. Pt states last BM 04/30/16. Upper abdomen firm to palpation, hypoactive bowel sounds. Pt given sprite and miralax. Pt resting in bed. Call light in reach. Addendum: 05/03/16 at 0435 by THEO KAPOOR RN still no BM this shift. Pt slept most of the night.
[2016-05-03] MEDS: Heparin 5,000 Unit/mL Inj SUBQ SCH ×2 (04:56→08:08)
[2016-05-03 05:19] VITALS: BP 111/74; PULSE 58; RESP 18; O2SAT 95
[2016-05-03] MEDS: Sodium Chloride LOK Flush 10 mL Syringe IVFLUSH SCH ×2 (05:22→08:16)
[2016-05-03] MEDS: Meropenem Inj 2,000 MG in 0.9% Sodium Chloride 100 ML IV SCH (05:23)
[2016-05-03 06:39] LABS: BASOPHILS % (AUTO) 0.9 % (0-3); EOSINOPHILS % (AUTO) 5.9 % (0-5); MONOCYTES % (AUTO) 15.5 % (4-12); Mean Corpuscular Hemoglobin 28.8 pg (27.0-35.0); Mean Corpuscular Volume 85.7 fL (81-100); NEUTROPHILS % (AUTO) 44.7 % (40-74); Platelet Count 188 bil/L (150-400)
--- NOTE | 2016-05-03 08:04 | PCM.DIMED ---
Genie Calero DO 05/03/16 0804: Discharge Instructions Date of Service May 03, 2016 Dates of Hospitalization Apr 26, 2016 at 13:07 Discharge Diagnosis Discharge Diagnosis 1. Acute severe sepsis, present on admission. Resolved. 2. Acute community-acquired pneumonia, present on admission. Resolved. 3. Chronic hepatitis C, present on admission. Presumed stable. 4. Acute bacteremia, present on admission. Resolving. 5. Severely prolonged QTc, present on admission. Resolved 6. Lactic acidosis, present on admission. Resolved. 7. Thrombopenia, unclear etiology, present on admission. Resolved 8. Acute normocytic anemia, unclear etiology, present on admission. Resolved. 9. Acute hypokalemia, present on admission. Resolved. 10. Hypertension, chronic. Stable. 11. Hyperlipidemia, chronic. Stable. 12. BPH, chronic. Stable. 13. Osteoarthritis, chronic. Stable. 14. GERD, chronic. Stable. 15. Insomnia, chronic. Stable. 16. Peripheral neuropathy, chronic. Stable. Medication Instructions Please continue taking oral antibiotic, Amoxicillin, 1 g by mouth every 8 hours for six more days. Test Results 1. Hepatitic C Ab 3.8 (high); Hepatitic C, reactive. 2. HIV 1&2 Ag/Ab negative. Diet Heart Healthy Patient Instructions Follow-up plan 1. Please follow up with your PCP after discharge within 1-2 weeks for further Hepatitic C work up and management. 2. Please follow up with Dr. Cruz, [facility], in his clinic on 05/09/2016. 3. Please follow up as an outpatient with Dr. Arevalo for further hepatosplenomegaly work up. If an appointment has not already been made please call and make an appointment. Follow-up Provider: Phillip Marquis MD Follow-up with PCP in: 1 week Daisy Griffiths DO 05/13/16 1750: Discharge Instructions Attending's Statement The patient was seen and examined together with Dr. Calero on 05/03/16 and I agree with the history, exam and plan as outlined in the note above. Genie Calero DO May 03, 2016 08:04 Daisy Griffiths DO May 13, 2016 17:50
[2016-05-03] MEDS: Potassium Chloride 20 mEq SR Tablet PO SCH (08:09)
[2016-05-03] MEDS: HYDROcodone-APAP 5-325 mg Tablet PO PRN (08:20)
[2016-05-03] MEDS ORDERED: Polyethylene Glycol (PEG) 17 Gm Powder PO SCH (08:30)
--- NOTE | 2016-05-03 10:12 | NUR ---
Social Work: Discharge Data: Pt is on day 7 of hospitalization. EMR reviewed. D/C orders are in. states pt was interested in [facility] gave pt and spouse the phone number for medical records to call. No further d/c planning needs identified at this time. [facility] [facility] will continue to follow if needs arise. Assessment: Pt who is independent at baseline. Plan: Pt will d/c home via POV with spouse today. No further d/c planning needs identified at this time. [employer] [facility] will continue to follow if needs arise. YASSINE [place]
[2016-05-03] MEDS ORDERED: AMOX500T2 PO (11:01)
--- NOTE | 2016-05-03 13:52 | NUR ---
Discharge Nursing staff member reviewed all pertinent information with patient. Went over new medication (Amoxicillin) directions and when to take the next dose of his other medications with him. Patient's IV removed intact. Any questions this patient had were answered to the patient and his 's satisfaction. Hard copies of rx were given to patient. Information on the amoxicillin as well as a heart healthy diet and community acquired pneumonia was given to the patient. Patient left the floor with his and a nursing staff member. Patients belongings were with his upon discharge. Patient left the floor at 1230. Patient was driven home by his .
--- NOTE | 2016-05-03 17:06 | PCM.DC.MED ---
Discharge Summary Date of Service May 03, 2016 Dates of Hospitalization Date of Hospital Admission Apr 26, 2016 at 13:07 Date of Discharge: May 03, 2016 Providers: Admitting Physician: Americo Jimenes MD Primary Care Physician: Phillip Marquis MD Attending Physician: Americo Jimenes MD Diagnosis at Time of Discharge Diagnosis at Time of Discharge 1. Acute severe sepsis, present on admission. Resolved. 2. Acute community-acquired pneumonia, present on admission. Resolved. 3. Chronic hepatitis C, present on admission. Presumed stable. 4. Acute bacteremia, present on admission. Resolving. 5. Severely prolonged QTc, present on admission. Resolved 6. Lactic acidosis, present on admission. Resolved. 7. Thrombopenia, unclear etiology, present on admission. Resolved 8. Acute normocytic anemia, unclear etiology, present on admission. Resolved. 9. Acute hypokalemia, present on admission. Resolved. 10. Hypertension, chronic. Stable. 11. Hyperlipidemia, chronic. Stable. 12. BPH, chronic. Stable. 13. Osteoarthritis, chronic. Stable. 14. GERD, chronic. Stable. 15. Insomnia, chronic. Stable. 16. Peripheral neuropathy, chronic. Stable. Consultations Infectious disease, Dr. Cruz Procedures XRay, CTs & MRIs CT CHEST, ABDOMEN AND PELVIS WTIH CONTRAST IMPRESSION: No diverticulitis is found. No pneumonia identified. Slight bilateral pleural effusions incidentally noted. A definite source of reported fevers and writers is not seen. 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 Hepatic and splenic enlargement, no varices or ascites is found. Depending on the clinical status followup by barium enema or colonoscopy may be warranted. Note is made of stool within the colon and diverticulosis along the colonic kuo but without definite acute diverticulitis. Accurate assessment for presence or absence of colitis or underlying colonic neoplasm would be quite limited in this study. Dictated by: Rafa Ambrocio M.D. on 04/27/2016 at 11:09 Approved by: Rafa Ambrocio M.D. on 04/27/2016 at 11:21 US ABDOMEN, LIMITED IMPRESSION: Mild hydropic appearance of the gallbladder which otherwise is normal. Dictated by: Eric Lopez Jorden Interpreted: Crista He MD on 04/26/2016 at 13: 53 Transcribed by: FRANCISCO on 04/26/2016 at 13:54 Approved by: Crista He M.D. on 04/26/2016 at 17:09 X-RAY CHEST ONE VIEW, PORTABLE IMPRESSION: Patchy bibasilar opacities as above suggestive of infection or inflammation such as developing pneumonia. Dictated by: Crista He M.D. on 04/26/2016 at 10:53 Approved by: Crista He M.D. on 04/26/2016 at 10:53 . ECG 12 Lead EKG: Sinus rhythm, heart rate 82, borderline normal axis, prolonged QTC of 593 ms, otherwise normal intervals, normal R-wave progression, PVC, no pathological Q waves or acute ischemic changes such as ST elevation or depression. . Brief History Per Admitting Physician: Americo Jimenes MD: Maico Yoon II is a 66-year-old male with a past medical history significant for coronary artery disease status post stenting, hypertension, and hyperlipidemia who presented to [facility] Emergency Department via EMS from the urgent care due to generalized weakness and flulike symptoms. He reports that his symptoms began 3 days ago and included fever (103F), chills, rigors, myalgias, severe headache, mild lightheadedness, and nonproductive dry cough. He also has developed sore throat and mild deep substernal chest pain. He describes the chest pain as sharp in quality and similar to the chest pain he had when he had coronary stenting but not as severe. EKG does not show any abnormalities other than severely prolonged QTc interval. The chest pain is only present with the rigors and while coughing. There is no pleuritic component.The chest pain does not radiate. He denies sick contacts at home. Vital signs in the ER: Temperature 39.5. Pulse 100. Respiratory rate 16. Blood pressure 123/56. Pulse ox 94% on room air. He was given 2 L of NS, acetaminophen 975 mg 1, morphine sulfate 4 mg IV 1, ondansetron 4 mg IV 1, ceftriaxone 2 g IV 1, doxycycline 100 mg 1, and KCl 40 mEq IV 1. PCP is Dr. Phillip Marquis. . Hospital Course Maico Yoon II is a 66-year-old male with a past medical history significant for coronary artery disease status post stenting, hypertension, and hyperlipidemia who presented to [facility] Emergency Department via EMS from the urgent care due to generalized weakness and flulike symptoms. Patient discharge on hospital day #8. 1. Acute severe sepsis, present on admission. Resolved. - SIRS criteria met includes: Febrile (39.5C) and tachycardic (heart rate 100) with source pulmonary. - Early goal-directed therapy met including: IV fluid resuscitation and broad- spectrum antibiotics. 2. Acute community-acquired pneumonia, present on admission. Resolved. - Patient presented with generalized weakness and URI symptoms including fever, chills, rigors, myalgias, severe headache, mild lightheadedness, and nonproductive dry cough, sore throat. - Chest x-ray revealed patchy bibasilar opacities suggestive of infection or inflammation such as developing pneumonia, as above. - Respiratory viral PCR negative, as above. - Ordered sputum culture but unlikely to obtain as cough is non-productive. - Strep pneumoniae and legionella urine antigens negative, as above. - MRSA screen negative, as above. - Blood cultures positive 2:2 for Escherichia coli, as above. Repeat blood cultures are negative. - Procalcitonin trending down and continue to trend daily, 1.07 at the time of discharge. - Treated with ceftriaxone and doxycycline. 3. Chronic hepatitis C, present on admission. Presumably stable. - Patient is positive for hep C antibodies. Results discussed with the patient in the room in the presence of his . - Hep C Genotype and quantification ordered and pending. - Patient will follow up with PCP upon discharge. - HIV negative. 4. Acute bacteremia, present on admission. Resolving. - Likely secondary to the kidney disease and/or smoke pyelonephritis. - Blood cultures positive 2:2 for Escherichia coli, as above. - Treated with meropenem, IV. Continued with amoxicillin 1 g 3 times a day by mouth 7 days as an outpatient. - Follow up with Dr. Cruz in his clinic on May 09. 5. Severely prolonged QTc, present on admission. Resolved - Likely secondary to Alfuzosin which has been discontinued. Flomax does not have QTC prolonging effects reported, however, will avoid at this time as it is in the same medication class. Also discussed Lyrica with the control clerk subassembly which does not have QTc prolonging properties. - QTc interval prolonged at 593 ms and patient is at risk of T[place] Point[place] and sudden , Repeat EKG on 04/30/16 showed QTC within normal range - Avoid any QTC prolonging medications including azithromycin, antiemetics such as Zofran, and atypical antipsychotics. 6. Lactic acidosis, present on admission. Resolved. - Lactic acid initially elevated at 3.2 and it has normalized. 7. Thrombopenia, unclear etiology, present on admission. Resolved - Less likely secondary to DIC based on hemolysis labs, however, may be sequestration from sepsis and infection versus other etiologies such as liver disease, medications, immune mediated, malignancy, etc. 8. Acute normocytic anemia, unclear etiology, present on admission. Resolved. - Patient has borderline anemia possibly secondary to DIC from sepsis and infection versus dilution versus other causes such as vitamin deficiencies, blood loss, under production, etc. - The patient does take a vitamin B complex at home, therefore, may be secondary to vitamin B12 deficiency with active replacement. 9. Acute hypokalemia, present on admission. Resolved. - KCl 40 mEq IV Chronic problems: 10. Hypertension, chronic. Stable. - Continued Lisinopril 20 mg twice a day and chlorthalidone 37.5 mg daily. 11. Hyperlipidemia, chronic. Stable. - Continued atorvastatin 80 mg daily at bedtime. 12. CAD s/p stenting. - Continued aspirin 81 mg daily and atorvastatin 80 mg daily at bedtime. 13. BPH, chronic. Stable. -Continued finasteride 5 mg daily. 14. Osteoarthritis, chronic. Stable. - Continued acetaminophen and [place] 5-325 mg 1 tab every 4 hours as needed for pain. 15. GERD, chronic. Stable. - Continued famotidine 20 mg twice a day. 16. Insomnia, chronic. Stable. - Continued zolpidem 5 mg as needed for insomnia. 17. Peripheral neuropathy, chronic. Stable. - Continued Lyrica 150 mg twice a day. Exam Vital Signs (Last) Date Time Temp Pulse Resp B/P Pulse Ox O2 Delivery O2 Flow Rate FiO2 05/03/16 05:19 36.6 58 18 111/74 95 Room Air 04/27/16 00:30 2.00 Exam General: Older gentleman lying in bed and in no acute distress, well-developed, well-nourished, appropriately interactive. HEENT: Normocephalic, atraumatic. External ears without defect. Pupils equal, round, and reactive to light. Anicteric sclerae, moist conjunctivae, and slight ptosis on the left. Oropharynx mild erythema without exudates. Neck: Supple with full range of motion. No jugular venous distension. No bruits. No lymphadenopathy or thyromegaly. Cardiovascular: Regular rate and rhythm with no murmurs, rubs, or gallops appreciated Pulmonary: Clear to auscultation bilaterally, No rhonchi or wheezes. Normal respiratory effort with no use of accessory muscles. Abdomen: Soft, nontender, nondistended, bowel sounds present. No hepatosplenomegaly or masses appreciated. Extremities: No clubbing, cyanosis, or edema. Developed rigors during interview. Skin: Normal temperature, turgor, and texture; no rash, ulcers, or subcutaneous nodules appreciated. Neurological: Cranial nerves grossly intact. Normal muscle strength, tone, and bulk. Reflexes, coordination, and sensory function within normal limits. No known gait impairment. Psychiatric: Normal mood and affect. Alert and oriented to person, place, and time. Test 04/26/16 10:08 04/26/16 10:30 04/26/16 15:27 04/27/16 07:50 Haptoglobin 121mg/dL (34-200) Fibrinogen 445mg/dL (157-380) Urine Color Straw (YELLOW) Urine Appearance Hazy (CLEAR,HAZY) Urine pH 5.5 (5.0-8.0) Urine Specific [place] 1.025 (1.003-1.035) Urine Protein 30mg/dL (NEG,TRACE) Urine Glucose (UA) Negativemg/dL (NEGATIVE) Urine Ketones Negativemg/dL (NEGATIVE) Urine Occult Blood Moderate (NEGATIVE) Urine Nitrite Negative (NEGATIVE) Urine Bilirubin Negative (NEGATIVE) Urine Urobilinogen Normalmg/dL (NORMAL) Urine Leukocyte Esterase Negative (NEGATIVE) Urine RBC 0-2/hpf (0-2) Urine WBC 0-5/hpf (0-5) Urine Epithelial Cells Occasional/hpf (NONE-MOD) Urine Crystals None seen (NONE SEEN) Urine Bacteria Moderate/hpf (NONE-FEW) Urine Hyaline Casts None/lpf (NONE) Urine Granular Casts Occasional (NONE SEEN) Urine Waxy Casts None seen (NONE SEEN) Urine Red Blood Cell Casts None seen (NONE SEEN) Urine White Blood Cell Casts None seen (NONE SEEN) Urine Mucus Present (None Seen) Urine Trichomonas None seen (NONE SEEN) Urine Yeast None (NONE SEEN) Urinalysis Comment None Urine Culture Reflexed Indicated C-Reactive Protein 12.3mg/dL (0.0-0.5) Lipase 22U/L (13-60) Urine Legionella pneumophilia Ag Negative (Negative) Reticulocyte Count,Calculated 1.0% (0.6-2.6) Hold Urine Received (Received) Lactic Acid Level 1.3mmol/L (0.4-2.0) Test 04/27/16 13:44 04/27/16 16:55 04/28/16 06:22 04/30/16 05:05 Strongyloides IgG Antibody Negative (Negative) Mitochondrial/Smooth Musc Ab Titer 3.8Units (0.0-20.0) Anti-Smooth Muscle Antibody 14Units (0-19) Hepatitis B Surface Antigen Negative (Negative) Hepatitis B Surface Antibody Non reactive (.) Hepatitis B Core Total Antibody Negative (Negative) Hepatitis C Antibody 3.8s/co ratio (0.0-0.9) Prothrombin Time 10.8sec (8.1-12.5) Prothromb Time International Ratio 1.01ratio Magnesium Level 2.0mg/dL (1.6-2.6) Test 05/01/16 05:25 05/02/16 05:45 05/03/16 05:35 HIV (1&2) Ag and Ab, 4th Generation Non reactive (Non Reactive) White Blood Count 5.8th/mm3 (3.8-10.1) Red Blood Count 5.25mil/mm3 (4.40-5.80) Hemoglobin 15.1g/dL (13.8-17.2) Hematocrit 45.0% (41.0-50.0) Mean Corpuscular Volume 85.7fL (81-100) Mean Corpuscular Hemoglobin 28.8pg (27.0-35.0) Mean Corpuscular Hemoglobin Concent 33.6% (32.0-37.0) Red Cell Distribution Width 14.3% (12.3-15.4) Platelet Count 188bil/L (150-400) Neutrophils (%) (Auto) 44.7% (40-74) Lymphocytes (%) (Auto) 31.6% (14-46) Monocytes (%) (Auto) 15.5% (4-12) Eosinophils (%) (Auto) 5.9% (0-5) Basophils (%) (Auto) 0.9% (0-3) Sodium Level 137mEq/L (134-144) Potassium Level 4.7mEq/L (3.5-5.2) Chloride Level 100mEq/L (97-108) Carbon Dioxide Level 28mmol/L (18-29) Blood Urea Nitrogen 19mg/dL (8-27) Creatinine 0.83mg/dL (0.76-1.27) Estimat Glomerular Filtration Rate 99mL/min (>59) Glucose Level 98mg/dL (60-99) Calcium Level 9.1mg/dL (8.5-10.1) Total Bilirubin 0.5mg/dL (0.0-1.2) Aspartate Amino Transf (AST/SGOT) 47U/L (0-50) Alanine Aminotransferase (ALT/SGPT) 49U/L (0-44) Alkaline Phosphatase 101U/L (25-160) Total Protein 6.3g/dL (6.4-8.4) Albumin 3.7g/dL (3.4-5.0) Procalcitonin 1.07ng/mL (0.00-0.08) Microbiology Results Urine culture shows no growth. Blood cultures positive 2:2 for Escherichia coli resistant to ampicillin. Repeat blood cultures 2 show no growth x 2 days. Respiratory viral PCR was negative. MRSA screen was negative. . Discharge Medications Discharge Medications Alfuzosin ER (Alfuzosin ER) 10 Mg Tab.er.24h 10 MG PO DAILY (Reported) Amoxicillin (Amoxicillin) 500 Mg Tablet 1,000 MG PO TID Prescribed by: ARYAN ERNANDEZ DO Aspirin (Aspirin) 81 Mg Tablet 81 MG PO DAILY (Reported) Atorvastatin Calcium (Atorvastatin Calcium) 80 Mg Tablet 80 MG PO DAILY ( Reported) Chlorthalidone (Chlorthalidone) 25 Mg Tablet 0.5 TAB PO DAILY (Reported) Cholecalciferol (Vitamin D3) (Vitamin D3) 2,000 Unit Capsule 2,000 UNIT PO DAILY (Reported) Finasteride (Finasteride) 5 Mg Tablet 5 MG PO DAILY (Reported) Lisinopril (Lisinopril) 20 Mg Tablet 20 MG PO BID (Reported) Multivitamin (Once Daily) 1 Each Tablet 1 EACH PO DAILY (Reported) [place]-3/Dha/Epa/Fish Oil (Fish Oil 1,000 mg Softgel) 1 Each Capsule 1 EACH PO DAILY (Reported) Pregabalin (Lyrica) 150 Mg Capsule 150 MG PO BID (Reported) Ranitidine (Ranitidine) 150 Mg Capsule 150 MG PO BID (Reported) Vitamin B Complex & Vit C No.4 (Super B Complex) 150 Mg Tablet 150 MG PO DAILY ( Reported) As needed Acetaminophen (Acetaminophen) 500 Mg Tablet 500 MG PO Q6H PRN PRN For Pain ( Reported) Hydrocodone-Acetaminophen 5-325 mg (Hydrocodone-Acetaminophen 5-325 mg) 1 Each Tablet 1 EACH PO Q4 PRN PRN For Pain (Reported) Sildenafil Citrate (Viagra) 100 Mg Tablet 100 MG PO UD PRN PRN sex (Reported) Zolpidem (Ambien) 10 Mg Tab 5 MG PO HS PRN PRN For Insomnia (Reported) Additional med instructions Please continue taking oral antibiotic, Amoxicillin, 1 g by mouth every 8 hours for six more days. Followup Plan Follow-up plan 1. Please follow up with your PCP after discharge within 1-2 weeks for further Hepatitic C work up and management. 2. Please follow up with Dr. Cruz, [facility], in his clinic on 05/09/2016. 3. Please follow up as an outpatient with Dr. Arevalo for further hepatosplenomegaly work up. If an appointment has not already been made please call and make an appointment. Discharge Diet: Heart Healthy Follow-up Provider: Phillip Marquis MD Follow-up with PCP in: 1 week Attending Statement The patient was seen and examined together with Dr. Ernandez on 05/03/16 and I agree with the history, exam and plan as outlined in the note above. copies to: Phillip Marquis MD, Oksana S DO May 03, 2016 17:06 Daisy Griffiths DO May 13, 2016 17:50
== END 2016-05-03 12:25 | disposition home or self-care (01) | DRG 871 ==
LOC: EDSEX 09:55 → EDBD 09:55 → SED 09:55 → MPC 13:07
PROVIDERS: ADMIT Family Medicine; ATTEND Family Medicine
DX: A41.51 Sepsis due to Escherichia coli [E. coli] (principal); J18.9 Pneumonia, unspecified organism; E87.2 Acidosis; R65.20 Severe sepsis without septic shock; I10 Essential (primary) hypertension; I25.10 Atherosclerotic heart disease of native coronary artery without angina pectoris; Z95.5 Presence of coronary angioplasty implant and graft; I45.81 Long QT syndrome; D69.6 Thrombocytopenia, unspecified; D64.9 Anemia, unspecified; E87.6 Hypokalemia; E78.5 Hyperlipidemia, unspecified; F51.04 Psychophysiologic insomnia; N40.0 Benign prostatic hyperplasia without lower urinary tract symptoms; G62.9 Polyneuropathy, unspecified; B18.2 Chronic viral hepatitis C